=== PATIENT | male | born 1980 | race Caucasian/White ===

== ENCOUNTER 2021-07-04 20:52 | Emergency (ER) | payer OTHER ==
[2021-07-04] MEDS ORDERED: Lidocaine Viscous Sol 2% 15 ml UD Cup ONE (21:36)
[2021-07-04] MEDS ORDERED: Mag-Al 1200 mg/1200 mg/30 ML UDCUP ONE (21:36)
[2021-07-04 22:08] LABS: #Basophils 0.1 thou/uL (0.0-0.2); #Eosinphils 0.1 thou/uL (0.0-0.7); #Lymphocytes 2.6 thou/uL (1.20-3.40); #Monocytes 0.5 thou/uL (0.11-0.59); #Neutrophils 3.1 thou/uL (1.40-6.50); %Basophils 1.1 % (0.0-1.0); %Eosinophils 2.3 % (0.0-10.0); %Lymphocytes 40.7 % (21.0-51.0); %Monocytes 8.2 % (0.0-10.0); %Neutrophils 47.8 % (42.0-75.0); Hemoglobin 17.5 g/dL (14.0-18.0); Mean Corpuscular HGB CONC 33.2 g/dL (32.0-36.0); Mean Corpuscular Hemoglobin 30.5 pg (27.0-31.0); Mean Corpuscular Volume 91.6 fL (78.0-98.0); Mean Platelet Volume 6.8 fL (7.4-10.4); Platelet Count 281 thou/uL (130-400); RBC Distribution Width 13.2 % (11.5-14.5); Red Blood Cell (RBC) Count 5.75 mill/uL (4.70-6.10); White Blood Cell (WBC) Count 6.5 thou/uL (4.8-10.8)
[2021-07-04 22:17] LABS: Bacteria/HPF None Seen HPF (None Seen); Bilirubin Negative (Negative); Blood, Urine Negative (Negative); Calcium Oxalate Crystals 2+ HPF (None Seen); Clarity Clear (Clear); Glucose, Urine (Dipstick) Normal (Negative); Ketone, Urine Negative (Negative); Leukocyte Negative Leu/uL (Negative); Nitrite Negative (Negative); Protein, Urine (Dipstick) 50 mg/dL (Neg-Trace); RBC/HPF 0-3 HPF (0-3); Specific Gravity, Urine 1.031 (1.002-1.036); Squamous Epithelial 0-3 HPF (0-3); Urobilinogen Normal mg/dL (Less than 2); WBC/HPF 0-3 HPF (0-3); pH, Urine 5.5 (5.0-9.0)
[2021-07-04 23:01] LABS: ALT (SGPT) 80 U/L (8-55); AST (SGOT) 52 U/L (5-34); Albumin 4.6 g/dL (3.5-5.0); Alkaline Phosphatase 73 U/L (40-110); Anion Gap 15 mmol/L (10-20); BUN (Urea Nitrogen) 10 mg/dL (8.9-20.6); Bilirubin, Total 0.6 mg/dL (0.2-1.2); Calc. Creatinine Clearance 0 mL/min (70-130); Calcium 9.2 mg/dL (7.8-10.44); Carbon Dioxide 22 mmol/L (22-29); Chloride 104 mmol/L (98-107); Globulin 2.8 g/dL (2.4-3.5); Glucose 87 mg/dL (70-105); Lipase 17 U/L (8-78); Potassium 4.3 mmol/L (3.5-5.1); Protein, Total 7.4 g/dL (6.0-8.3); Sodium 137 mmol/L (136-145)
== END 2021-07-04 23:34 | disposition home or self-care (01) ==
LOC: ERS 20:52
DX: R10.13 Epigastric pain (principal); F17.210 Nicotine dependence, cigarettes, uncomplicated; R10.812 Left upper quadrant abdominal tenderness; Z79.899 Other long term (current) drug therapy
CPT/HCPCS: 36415; 80053; 81003; 81015; 83690; 85025; 99284

== ENCOUNTER 2023-06-23 13:50 | Inpatient (IN) | payer BC, OTHER, SELFPAY ==
[~2023-06-23 13:50] MED LIST: Iopamidol-370 76% 500 ML MDV (1 ML CHARGE) ONE
[2023-06-23] MEDS ORDERED: CEFAZOLIN 2 GM VIAL ONE (13:56)
[2023-06-23] MEDS ORDERED: Tranexamic Acid 1,000 MG/10 ML VIAL ONE ×2 (13:56→16:28)
[2023-06-23] MEDS ORDERED: Boostrix 0.5 ML (Tdap) VIAL (>/=7 yrs of age) ONE (13:57)
[2023-06-23 14:14] LABS: Hematocrit 42.1 % (42.0-52.0); Hemoglobin 12.8 g/dL (14.0-18.0); Manual Diff?? YES; Mean Corpuscular HGB CONC 30.4 g/dL (32.0-36.0); Mean Corpuscular Hemoglobin 29.3 pg (27.0-31.0); Mean Corpuscular Volume 96.3 fl (78.0-98.0); Mean Platelet Volume 10.1 fL (7.4-10.4); Platelet Count 226 10x3/uL (130-400); RBC Distribution Width 17.1 % (11.5-14.5); Red Blood Cell (RBC) Count 4.37 mill/uL (4.70-6.10); White Blood Cell (WBC) Count 8.4 10x3/uL (4.8-10.8)
[2023-06-23 14:21] LABS: Delete Auto Diff?? YES
[2023-06-23 14:28] LABS: INR-International Normal Ratio 1.8; Prothrombin Time 20.5 sec (12.0-14.7)
[2023-06-23] MEDS ORDERED: Ketamine In 0.9 % NaCl 50 MG/5 ML SYRINGE ONE (14:28)
[2023-06-23 14:29] LABS: PTT 46.7 sec (22.9-36.1)
[2023-06-23] MEDS ORDERED: PHENYLEPHRINE-NS 100 MCG/ML 10 ML SYRINGE ONE (14:31)
[2023-06-23] MEDS ORDERED: Albumin 5% 500 ML ONE ×2 (14:33→16:30)
[2023-06-23] MEDS ORDERED: EPINEPHrine 1 MG/10 ML Abboject SYRINGE ONE (14:37)
[2023-06-23] MEDS ORDERED: Vasopressin 20 UNITS/ML VIAL ONE (14:37)
[2023-06-23] MEDS ORDERED: Rocuronium Bromide 10 MG/ML (10ML VIAL) ONE ×2 (14:39→15:35)
[2023-06-23] MEDS ORDERED: ePHEDrine Sulfate 50 MG/10 ML VIAL ONE (14:39)
[2023-06-23 14:43] LABS: Anisocytosis SLIGHT = 6-15 cells HPF (0-5); Band 5 % (5-11); Burr Cells SLIGHT = 2-5 cells HPF (0-1); CellaVision Operator ID LAB.MJL; Eosinophils 3 % (0-10); Lymphocytes 50 % (21-51); Metamyelocyte 2 % (0-0); Monocytes 4 % (0-10); Neutrophil 35 % (42-75); Ovalocytes SLIGHT = 2-5 cells HPF (0-1); Platelet Adequacy Comment Platelets Normal; Poikilocytosis SLIGHT = 6-15 cells HPF (0-5); Polychromasia SLIGHT = 2-3 cells HPF (0-2); Total Cell Count 100
[2023-06-23] MEDS ORDERED: fentaNYL 50 mcg/mL 1 mL Vial ONE (14:43)
[2023-06-23] MEDS ORDERED: fentaNYL PF 100 MCG/2 ML SYRINGE ONE (14:47)
[2023-06-23] MEDS ORDERED: Midazolam HCl 2 mg/2 ml Vial ONE ×2 (14:48→15:35)
[2023-06-23] MEDS ORDERED: Electrolyte Replacement Protocol 1 EACH IVPB ONE (15:22)
[2023-06-23] MEDS ORDERED: Ondansetron PF 4 MG/2 ML Vial IVP PRN (15:22)
[2023-06-23] MEDS ORDERED: Insulin Regular 300 UNITS/3 ML VIAL ONE (15:24)
[2023-06-23] MEDS ORDERED: Dextrose 50% Abboject 50 ML SYRINGE ONE ×2 (15:26→17:34)
[2023-06-23] MEDS ORDERED: DISCONTINUE PREVIOUS NARCOTIC PAIN MEDICATIONS AND BENZODIAZEPINES FS SCH (15:30)
[2023-06-23] MEDS ORDERED: Ventilator Sedation Protocol 1 EACH FS SCH (15:30)
[2023-06-23] MEDS ORDERED: Propofol BOLUS 1,000 MG/100 ML VIAL IV PRN (15:30)
[2023-06-23] MEDS ORDERED: Fentanyl BOLUS 250 ML IVPB PRN (15:30)
[2023-06-23] MEDS ORDERED: Calcium Chloride 1 GM/10 ML Abboject SYRINGE ONE ×3 (15:41→17:00)
[2023-06-23 15:50] LABS: ALT (SGPT) 512 U/L (8-55); AST (SGOT) 473 U/L (5-34); Albumin 2.6 g/dL (3.5-5.0); Alkaline Phosphatase 53 U/L (40-110); BUN (Urea Nitrogen) 10 mg/dL (8.9-20.6); Bilirubin, Total 0.2 mg/dL (0.2-1.2); Calc. Creatinine Clearance 0 mL/min (70-130); Calcium 7.8 mg/dL (7.8-10.44); Chloride 110 mmol/L (98-107); Estimated GFR 64; Globulin 1.6 g/dL (2.4-3.5); Glucose 319 mg/dL (70-105); Potassium 4.3 mmol/L (3.5-5.1); Protein, Total 4.2 g/dL (6.0-8.3); Sodium 137 mmol/L (136-145)
[2023-06-23] MEDS ORDERED: Protamine Sulfate 50 MG/5 ML VIAL ONE (15:50)
[2023-06-23] MEDS ORDERED: Heparin 5,000 UNITS/ML VIAL ONE (15:50)
[2023-06-23 16:00] LABS: Carbon Dioxide Less than 8 mmol/L (22-29)
[2023-06-23] MEDS ORDERED: Electrolyte Replacement Protocol FS PRN (16:00)
[2023-06-23 16:36] LABS: Critical Call Chem-Lactate E343.105A@1635163
[2023-06-23 16:53] LABS: INR-International Normal Ratio 1.8; Prothrombin Time 20.7 sec (12.0-14.7)
[2023-06-23 16:54] LABS: PTT 41.2 sec (22.9-36.1)
[2023-06-23 18:13] LABS: Actual Bicarbonate (HCO3a) 19.4 mEq/L (22-28); Base Excess (BEa) -6.7 mEq/L (-2.0 to +3.0); CO2 Tension 41.1 mmHg (35.0-45.0); Carboxyhemoglobin (COHb) 0.7 gm% (0.0-3.0); Hematocrit-ABG 24 % (42.0-52.0); Hemoglobin (Hb) 8.1 g/dL (14.0-18.0); O2 Tension (PaO2), arterial 499.1 mmHg (80.0-100.0); Potassium - ABG Lab 4.34 mmol/L (3.70-5.30); pH, Arterial 7.291 (7.35-7.45)
[2023-06-23] MEDS: Morphine 2 MG/ML VIAL SLOW IVP PRN (18:15)
[2023-06-23] MEDS: Lactated Ringer's 1,000 ML IV SCH (18:16)
[2023-06-23 18:22] LABS: ALV-art Gradient 162.525 mmHg (0-20); Puncture Site ALINE
[2023-06-23 18:25] LABS: Mean Corpuscular Hemoglobin 30.4 pg (27.0-31.0); Mean Platelet Volume 9.7 fL (7.4-10.4); Platelet Count 178 10x3/uL (130-400); RBC Distribution Width 14.8 % (11.5-14.5)
[2023-06-23 18:27] LABS: Hematocrit 22.6 % (42.0-52.0); Hemoglobin 7.9 g/dL (14.0-18.0); Mean Corpuscular Volume 86.9 fl (78.0-98.0)
[2023-06-23] MEDS: Ipratropium/Albuterol 3 ML NEB NEB SCH (18:31)
[2023-06-23] MEDS: Fentanyl CADD 100 ML IV SCH (18:35)
[2023-06-23 18:48] LABS: Anion Gap 13 mmol/L (10-20); BUN (Urea Nitrogen) 11 mg/dL (8.9-20.6); Calc. Creatinine Clearance 0 mL/min (70-130); Calcium 8.5 mg/dL (7.8-10.44); Carbon Dioxide 17 mmol/L (22-29); Chloride 115 mmol/L (98-107); Estimated GFR 66; Glucose 97 mg/dL (70-105); Potassium 4.5 mmol/L (3.5-5.1); Sodium 140 mmol/L (136-145)
[2023-06-23 18:49] LABS: Lactic Acid 2.7 mmol/L (0.5-2.2)
[2023-06-23] MEDS: Lorazepam 2 MG/ML VIAL SLOW IVP PRN (19:36)
[2023-06-23 20:37] LABS: Amphetamine Detected (NotDetected); Barbiturates Screen Detected (NotDetected); Benzodiazepine Screen Not Detected (NotDetected); Cocaine Metabolite Screen Not Detected (NotDetected); Methadone Not Detected (NotDetected); Methamphetamine Not Detected (NotDetected); Opiate Screen Detected (NotDetected); Oxycodone Screen Not Detected (NotDetected); Phencyclidine (PCP) Not Detected (NotDetected); THC/Cannabinoid Screen Not Detected (NotDetected); Tricyclic Screen Not Detected (NotDetected)
[2023-06-23] MEDS: CEFAZOLIN 2 GM in Sodium Chloride 0.9% 100 ML IVPB SCH (21:17)
[2023-06-23] MEDS: Famotidine/PF 20 mg/2ml Vial SLOW IVP SCH (21:17)
[2023-06-23 22:56] LABS: Hemoglobin 9.5 g/dL (14.0-18.0); Mean Corpuscular HGB CONC 36.5 g/dL (32.0-36.0); Mean Corpuscular Hemoglobin 32.2 pg (27.0-31.0); Mean Corpuscular Volume 88.1 fl (78.0-98.0); Mean Platelet Volume 9.9 fL (7.4-10.4); Platelet Count 189 10x3/uL (130-400); RBC Distribution Width 14.7 % (11.5-14.5); Red Blood Cell (RBC) Count 2.95 mill/uL (4.70-6.10); White Blood Cell (WBC) Count 22.2 10x3/uL (4.8-10.8)
[2023-06-24] MEDS: Acetaminophen 325 MG TAB PO PRN (00:30)
[2023-06-24] MEDS: Sodium Chloride 0.9% 500 ML IV SCH (02:26)
[2023-06-24] MEDS: Propofol 1,000 MG/100 ML VIAL IV PRN (03:19)
[2023-06-24 03:20] LABS: Delete Auto Diff?? YES; Hematocrit 21.4 % (42.0-52.0); Hemoglobin 7.7 g/dL (14.0-18.0); Manual Diff?? YES; Mean Corpuscular Hemoglobin 31.4 pg (27.0-31.0); Mean Corpuscular Volume 87.3 fl (78.0-98.0); Mean Platelet Volume 9.8 fL (7.4-10.4); Platelet Count 188 10x3/uL (130-400); RBC Distribution Width 15.2 % (11.5-14.5); Red Blood Cell (RBC) Count 2.45 mill/uL (4.70-6.10); White Blood Cell (WBC) Count 19.6 10x3/uL (4.8-10.8)
[2023-06-24 03:33] LABS: INR-International Normal Ratio 1.6; Prothrombin Time 19.3 sec (12.0-14.7)
[2023-06-24 03:34] LABS: PTT 31.1 sec (22.9-36.1)
[2023-06-24 03:45] LABS: Anisocytosis SLIGHT = 6-15 cells HPF (0-5); Band 7 % (5-11); CellaVision Operator ID lab.sh2; Lymphocytes 5 % (21-51); Monocytes 3 % (0-10); Neutrophil 85 % (42-75); Platelet Adequacy Comment Platelets Normal; Polychromasia SLIGHT = 2-3 cells HPF (0-2); Smudge Cells 9.8 %; Total Cell Count 102
[2023-06-24 04:00] LABS: ALT (SGPT) 556 U/L (8-55); AST (SGOT) 742 U/L (5-34); Albumin 3.2 g/dL (3.5-5.0); Alkaline Phosphatase 42 U/L (40-110); Anion Gap 14 mmol/L (10-20); BUN (Urea Nitrogen) 22 mg/dL (8.9-20.6); Bilirubin, Total 0.5 mg/dL (0.2-1.2); Calc. Creatinine Clearance 43 mL/min (70-130); Calcium 6.9 mg/dL (7.8-10.44); Carbon Dioxide 17 mmol/L (22-29); Chloride 116 mmol/L (98-107); Estimated GFR 35; Globulin 1.3 g/dL (2.4-3.5); Glucose 118 mg/dL (70-105); Potassium 6.7 mmol/L (3.5-5.1); Protein, Total 4.5 g/dL (6.0-8.3); Sodium 140 mmol/L (136-145)
[2023-06-24] MEDS ORDERED: Lactated Ringer's 1,000 ML IV SCH (04:08)
[2023-06-24] MEDS: Insulin Regular 300 UNITS/3 ML VIAL IVP SCH ×2 (04:19→06:17)
[2023-06-24] MEDS: Dextrose 50% Abboject 50 ML SYRINGE SLOW IVP PRN (04:19)
[2023-06-24] MEDS: Sodium Bicarb 50 mEq/50 ML VIAL IVP SCH (04:20)
[2023-06-24] MEDS: Calcium Gluc 4.6 MEQ/10 ML (100 MG/ML) SLOW IVP SCH (04:21)
[2023-06-24] MEDS: Sodium Chloride 0.9% 1,000 ML IV SCH (04:33)
[2023-06-24 06:00] LABS: Anion Gap 14 mmol/L (10-20); BUN (Urea Nitrogen) 24 mg/dL (8.9-20.6); Calc. Creatinine Clearance 42 mL/min (70-130); Carbon Dioxide 16 mmol/L (22-29); Chloride 115 mmol/L (98-107); Estimated GFR 33; Glucose 207 mg/dL (70-105); Sodium 139 mmol/L (136-145)
[2023-06-24 06:02] LABS: Calcium 6.9 mg/dL (7.8-10.44); Critical Call Chemistry ICU.TMC@0602; Potassium 6.1 mmol/L (3.5-5.1)
[2023-06-24] MEDS ORDERED: Dextrose 50% Abboject 50 ML SYRINGE SLOW IVP PRN (06:04)
[2023-06-24] MEDS ORDERED: Glucagon 1 MG/ML KIT IM PRN (06:18)
[2023-06-24] MEDS: LOKELMA 10 GM PACKET PO SCH (06:18)
[2023-06-24] MEDS ORDERED: Dextrose 5% in Water 1,000 ML IV PRN (06:18)
[2023-06-24] MEDS: Sodium Bicarbonate 150 MEQ in Dextrose 5% in Water 1,000 ML IV SCH ×2 (06:31→10:06)
[2023-06-24 07:43] LABS: Actual Bicarbonate (HCO3a) 18.4 mEq/L (22-28); Base Excess (BEa) -6.4 mEq/L (-2.0 to +3.0); CO2 Tension 33.8 mmHg (35.0-45.0); Carboxyhemoglobin (COHb) 0.3 gm% (0.0-3.0); Hematocrit-ABG 25 % (42.0-52.0); Hemoglobin (Hb) 8.4 g/dL (14.0-18.0); O2 Tension (PaO2), arterial 160.4 mmHg (80.0-100.0); Potassium - ABG Lab 5.16 mmol/L (3.70-5.30); pH, Arterial 7.354 (7.35-7.45)
[2023-06-24 07:45] LABS: Puncture Site Arterial Line
[2023-06-24 08:31] LABS: Hematocrit 22.5 % (42.0-52.0); Hemoglobin 8.1 g/dL (14.0-18.0); Mean Corpuscular Hemoglobin 31.2 pg (27.0-31.0); Mean Corpuscular Volume 86.5 fl (78.0-98.0); Mean Platelet Volume 10.3 fL (7.4-10.4); Platelet Count 162 10x3/uL (130-400); RBC Distribution Width 15.2 % (11.5-14.5); White Blood Cell (WBC) Count 14.1 10x3/uL (4.8-10.8)
[2023-06-24 08:58] LABS: Bilirubin Negative (Negative); Blood, Urine 3+ (Negative); Clarity Turbid (Clear); Glucose, Urine (Dipstick) 200 mg/dL (Negative); Ketone, Urine Trace mg/dL (Negative); Leukocyte Negative Leu/uL (Negative); Nitrite Negative (Negative); Protein, Urine (Dipstick) 100 mg/dL (Neg-Trace); Specific Gravity, Urine 1.032 (1.002-1.036); Squamous Epithelial 0-3 HPF (0-3); Urobilinogen Normal mg/dL (Less than 2); pH, Urine 5.5 (5.0-9.0)
[2023-06-24 09:08] LABS: Bacteria/HPF 2+ HPF (None Seen)
[2023-06-24 09:16] LABS: Creatinine, Urine 133.29 mg/dL (63-166); Sodium, Urine Less than 20 mmol/L (Not Available)
[2023-06-24] MEDS: HumaLOG 300 UNITS/3 ML VIAL SC PRN (10:08)
[2023-06-24 12:36] LABS: Anion Gap 13 mmol/L (10-20); BUN (Urea Nitrogen) 30 mg/dL (8.9-20.6); Calc. Creatinine Clearance 35 mL/min (70-130); Carbon Dioxide 25 mmol/L (22-29); Chloride 108 mmol/L (98-107); Estimated GFR 26; Glucose 178 mg/dL (70-105); Potassium 4.1 mmol/L (3.5-5.1); Sodium 142 mmol/L (136-145)
[2023-06-24 12:40] LABS: Calcium 6.1 mg/dL (7.8-10.44); Critical Call Chemistry NUR.AG15@1240
[2023-06-24 13:02] LABS: CK (CPK) 37962 U/L (30-200)
[2023-06-24] MEDS: Calcium Chloride 13.6 MEQ in Sodium Chloride 0.9% 100 ML IVPB SCH ×3 (13:14→19:32)
[2023-06-24] MEDS: Lactated Ringer's 1,000 ML IV SCH (15:53)
[2023-06-24 17:36] LABS: Hematocrit 18.2 % (42.0-52.0); Hemoglobin 6.6 g/dL (14.0-18.0); Mean Corpuscular HGB CONC 36.3 g/dL (32.0-36.0); Mean Corpuscular Volume 85.4 fl (78.0-98.0); Mean Platelet Volume 10.2 fL (7.4-10.4); Platelet Count 128 10x3/uL (130-400); RBC Distribution Width 15.1 % (11.5-14.5); Red Blood Cell (RBC) Count 2.13 mill/uL (4.70-6.10); White Blood Cell (WBC) Count 9.5 10x3/uL (4.8-10.8)
[2023-06-24] MEDS: Sodium Bicarbonate 75 MEQ in Sodium Chloride 0.45% 1,000 ML IV SCH (17:53)
[2023-06-24 18:09] LABS: Anion Gap 12 mmol/L (10-20); BUN (Urea Nitrogen) 33 mg/dL (8.9-20.6); Calc. Creatinine Clearance 29 mL/min (70-130); Carbon Dioxide 29 mmol/L (22-29); Chloride 104 mmol/L (98-107); Estimated GFR 21; Glucose 74 mg/dL (70-105); Potassium 3.8 mmol/L (3.5-5.1); Sodium 141 mmol/L (136-145)
[2023-06-24 18:14] LABS: Calcium 6.9 mg/dL (7.8-10.44); Critical Call Chemistry NUR.AG15@1814
[2023-06-24] MEDS ORDERED: hydrALAZINE 20 MG/ML VIAL SLOW IVP PRN ×2 (19:29→22:56)
[2023-06-24] MEDS: Labetalol HCl 100 MG/20 ML VIAL SLOW IVP PRN (20:02)
[2023-06-24] MEDS: Senokot S 8.6-50 MG TAB PO SCH (21:22)
[2023-06-24 21:38] LABS: Hemoglobin 7.7 g/dL (14.0-18.0); Mean Corpuscular Hemoglobin 29.7 pg (27.0-31.0); Mean Corpuscular Volume 84.9 fl (78.0-98.0); Mean Platelet Volume 10.4 fL (7.4-10.4); Platelet Count 103 10x3/uL (130-400); RBC Distribution Width 15.7 % (11.5-14.5); Red Blood Cell (RBC) Count 2.59 mill/uL (4.70-6.10); White Blood Cell (WBC) Count 8.9 10x3/uL (4.8-10.8)
[2023-06-24] MEDS: Sodium Chloride 0.45% 1,000 ML IV SCH (23:32)
[2023-06-25] MEDS: Labetalol HCl 100 MG/20 ML VIAL SLOW IVP PRN (00:35)
[2023-06-25 04:28] LABS: Hematocrit 20.7 % (42.0-52.0); Hemoglobin 7.2 g/dL (14.0-18.0); Manual Diff?? YES; Mean Corpuscular HGB CONC 34.8 g/dL (32.0-36.0); Mean Corpuscular Hemoglobin 30.1 pg (27.0-31.0); Mean Corpuscular Volume 86.6 fl (78.0-98.0); Mean Platelet Volume 10.9 fL (7.4-10.4); Platelet Count 105 10x3/uL (130-400); RBC Distribution Width 15.8 % (11.5-14.5); Red Blood Cell (RBC) Count 2.39 mill/uL (4.70-6.10); White Blood Cell (WBC) Count 9.5 10x3/uL (4.8-10.8)
[2023-06-25 04:30] LABS: Delete Auto Diff?? YES
[2023-06-25 04:42] LABS: INR-International Normal Ratio 1.8; Prothrombin Time 21.2 sec (12.0-14.7)
[2023-06-25 04:43] LABS: PTT 34.5 sec (22.9-36.1)
[2023-06-25 05:21] LABS: ALT (SGPT) 2066 U/L (8-55); Albumin 2.5 g/dL (3.5-5.0); Alkaline Phosphatase 43 U/L (40-110); Anion Gap 17 mmol/L (10-20); BUN (Urea Nitrogen) 45 mg/dL (8.9-20.6); Bilirubin, Total 0.5 mg/dL (0.2-1.2); Calc. Creatinine Clearance 22 mL/min (70-130); Carbon Dioxide 25 mmol/L (22-29); Chloride 103 mmol/L (98-107); Estimated GFR 15; Globulin 1.6 g/dL (2.4-3.5); Glucose 89 mg/dL (70-105); Potassium 5.3 mmol/L (3.5-5.1); Protein, Total 4.1 g/dL (6.0-8.3); Sodium 140 mmol/L (136-145)
[2023-06-25 05:33] LABS: Calcium 6.8 mg/dL (7.8-10.44); Critical Call Chemistry ICU.TMC @0532
[2023-06-25 05:42] LABS: Band 23 % (5-11); CellaVision Operator ID LAB.CLH1; Eosinophils 1 % (0-10); Hypochromia SLIGHT = 6-15 cells HPF (0-5); Large Platelets 5.1 % (0-5); Lymphocytes 14 % (21-51); Microcytosis SLIGHT = 6-15 cells HPF (0-5); Monocytes 3 % (0-10); Neutrophil 58 % (42-75); Nucleated RBC (Manual Ct) 1 % (0); Platelet Adequacy Comment Platelets Decreased; Polychromasia SLIGHT = 2-3 cells HPF (0-2); Total Cell Count 99
[2023-06-25 05:50] LABS: AST (SGOT) Greater than 3500 U/L (5-34)
[2023-06-25] MEDS: Albumin 25% 25 GM (100 mL) BOT IVPB SCH (06:00)
[2023-06-25 06:20] LABS: CK (CPK) Greater than 40000 U/L (30-200)
[2023-06-25 07:53] LABS: Actual Bicarbonate (HCO3a) 25.2 mEq/L (22-28); Base Excess (BEa) 1.7 mEq/L (-2.0 to +3.0); CO2 Tension 34.1 mmHg (35.0-45.0); Calcium, Ionized (arterial) 0.86 mmol/L (1.12-1.30); Carboxyhemoglobin (COHb) 0.4 gm% (0.0-3.0); Hematocrit-ABG 21 % (42.0-52.0); Potassium - ABG Lab 4.81 mmol/L (3.70-5.30); pH, Arterial 7.486 (7.35-7.45)
[2023-06-25 07:55] LABS: Puncture Site Arterial Line
[2023-06-25 07:56] LABS: ALV-art Gradient 74.575 mmHg (0-20)
[2023-06-25 08:05] LABS: Hemoglobin 6.7 g/dL (14.0-18.0); Mean Corpuscular HGB CONC 35.3 g/dL (32.0-36.0); Mean Corpuscular Hemoglobin 30.5 pg (27.0-31.0); Mean Corpuscular Volume 86.4 fl (78.0-98.0); Mean Platelet Volume 10.8 fL (7.4-10.4); Platelet Count 93 10x3/uL (130-400); RBC Distribution Width 15.9 % (11.5-14.5); White Blood Cell (WBC) Count 8.5 10x3/uL (4.8-10.8)
[2023-06-25] MEDS: Sodium Bicarbonate 75 MEQ in Sodium Chloride 0.45% 1,000 ML IV SCH (08:46)
[2023-06-25] MEDS: Polyethylene Glycol 3350 17 GM Packet PO SCH (09:49)
[2023-06-25] MEDS: Pantoprazole 40 MG VIAL IVP SCH (09:49)
[2023-06-25 14:07] LABS: Hematocrit 20.5 % (42.0-52.0); Hemoglobin 7.4 g/dL (14.0-18.0)
[2023-06-25 14:09] LABS: Platelet Count 86 10x3/uL (130-400)
[2023-06-25 14:23] LABS: Fibrinogen 315 mg/dL (253-463); INR-International Normal Ratio 1.8; PTT 33.2 sec (22.9-36.1); Prothrombin Time 20.7 sec (12.0-14.7)
[2023-06-25 14:34] LABS: D-Dimer Test 4.18 *mcg/mL (0.27-0.43)
[2023-06-25 14:43] LABS: Anion Gap 14 mmol/L (10-20); BUN (Urea Nitrogen) 54 mg/dL (8.9-20.6); Calc. Creatinine Clearance 18 mL/min (70-130); Carbon Dioxide 26 mmol/L (22-29); Chloride 103 mmol/L (98-107); Estimated GFR 12; Glucose 100 mg/dL (70-105); Potassium 4.9 mmol/L (3.5-5.1); Sodium 138 mmol/L (136-145)
[2023-06-25 14:49] LABS: Critical Call Chemistry ICU.VW@1448
[2023-06-25] MEDS: Calcium Chloride 27.2 MEQ in Sodium Chloride 0.9% 250 ML 250 ML IVPB SCH (17:34)
[2023-06-25] MEDS: Calcium Chloride 13.6 MEQ in Sodium Chloride 0.9% 100 ML IVPB SCH (18:36)
[2023-06-25] MEDS ORDERED: niCARdipine 25 MG in Sodium Chloride 0.9% 250 ML 250 ML IVPB SCH (20:15)
[2023-06-25 20:27] LABS: Hematocrit 20.4 % (42.0-52.0); Hemoglobin 7.3 g/dL (14.0-18.0); Mean Corpuscular HGB CONC 35.8 g/dL (32.0-36.0); Mean Platelet Volume 10.6 fL (7.4-10.4); Platelet Count 67 10x3/uL (130-400); RBC Distribution Width 15.8 % (11.5-14.5); Red Blood Cell (RBC) Count 2.43 mill/uL (4.70-6.10); White Blood Cell (WBC) Count 7.4 10x3/uL (4.8-10.8)
[2023-06-25] MEDS: niCARdipine 25 MG in Sodium Chloride 0.9% 250 ML 250 ML IVPB SCH (20:39)
[2023-06-25] MEDS: Tranexamic Acid 1,000 MG/10 ML VIAL IVP SCH (21:35)
[2023-06-25] MEDS: Labetalol HCl 100 MG/20 ML VIAL SLOW IVP SCH (21:45)
[2023-06-25 22:58] LABS: Hep B Core Total Ab Non-Reactive (NonReactive); Hep B Core Total Index 0.06 S/CO (0-0.79); Hep B Surf Ag Non-Reactive S/CO (NonReactive); Hep C IgG Ab Non-Reactive S/CO (NonReactive); Hep C Index 0.03 S/CO (0-0.79)
[2023-06-25 23:01] LABS: Hep B Surf AB Reactive (NonReactive)
[2023-06-25 23:25] LABS: Glucose 91 mg/dL (70-105)
[2023-06-26 02:06] LABS: #Eosinphils 0.2 thou/uL (0.0-0.7); #Monocytes 0.6 thou/uL (0.11-0.59); #Neutrophils 6.9 thou/uL (1.40-6.50); %Basophils 0.2 % (0.0-1.0); %Eosinophils 2.3 % (0.0-10.0); %Monocytes 6.3 % (0.0-10.0); Hematocrit 24.5 % (42.0-52.0); Hemoglobin 8.5 g/dL (14.0-18.0); Mean Corpuscular HGB CONC 34.7 g/dL (32.0-36.0); Mean Corpuscular Hemoglobin 29.4 pg (27.0-31.0); Mean Corpuscular Volume 84.8 fl (78.0-98.0); Mean Platelet Volume 10.9 fL (7.4-10.4); Platelet Count 68 10x3/uL (130-400); RBC Distribution Width 15.8 % (11.5-14.5); Red Blood Cell (RBC) Count 2.89 mill/uL (4.70-6.10); White Blood Cell (WBC) Count 8.8 10x3/uL (4.8-10.8)
[2023-06-26 02:33] LABS: ALT (SGPT) 614 U/L (8-55); AST (SGOT) 3326 U/L (5-34); Albumin 3.6 g/dL (3.5-5.0); Alkaline Phosphatase 39 U/L (40-110); Anion Gap 18 mmol/L (10-20); BUN (Urea Nitrogen) 60 mg/dL (8.9-20.6); Bilirubin, Total 0.8 mg/dL (0.2-1.2); Calc. Creatinine Clearance 8 mL/min (70-130); Calcium 7.2 mg/dL (7.8-10.44); Carbon Dioxide 25 mmol/L (22-29); Chloride 99 mmol/L (98-107); Estimated GFR 10; Globulin 1.5 g/dL (2.4-3.5); Glucose 101 mg/dL (70-105); Potassium 4.4 mmol/L (3.5-5.1); Protein, Total 5.1 g/dL (6.0-8.3); Sodium 138 mmol/L (136-145)
[2023-06-26 03:48] LABS: CK (CPK) Greater than 40000 U/L (30-200)
[2023-06-26 06:35] LABS: Actual Bicarbonate (HCO3a) 22.3 mEq/L (22-28); Base Excess (BEa) -1.4 mEq/L (-2.0 to +3.0); CO2 Tension 32.9 mmHg (35.0-45.0); Calcium, Ionized (arterial) 0.83 mmol/L (1.12-1.30); Carboxyhemoglobin (COHb) 0.6 gm% (0.0-3.0); Hematocrit-ABG 24 % (42.0-52.0); Hemoglobin (Hb) 8.2 g/dL (14.0-18.0); pH, Arterial 7.448 (7.35-7.45)
[2023-06-26 06:37] LABS: ALV-art Gradient 289.025 mmHg (0-20); Puncture Site A-Line
[2023-06-26] MEDS ORDERED: Glycopyrrolate 0.4 MG/ 2 ML VIAL SLOW IVP PRN (10:00)
[2023-06-26] MEDS: Acetylcysteine 20% 200 MG/ML 30 ML VIAL INH SCH ×2 (10:28→19:01)
[2023-06-26] MEDS: NIFEdipine XL 30 MG ER.TAB PO SCH (10:44)
[2023-06-26] MEDS: FLU VACC QS2023-24(6MOS UP)/PF 60 MCG/0.5 ML SYRINGE IM ONE (10:52)
[2023-06-26] MEDS: Scopolamine 1 mg/72 hour Patch TOP SCH (10:55)
[2023-06-26] MEDS: Furosemide 40 MG (4 mL) VIAL SLOW IVP SCH ×2 (10:56→13:22)
[2023-06-26] MEDS: Lactulose 20 GM (30 mL) UDCUP PO SCH ×2 (10:56→22:52)
[2023-06-26] MEDS: GLYCOPYRROLATE/PF 0.2 MG/ML VIAL SLOW IVP PRN (10:58)
[2023-06-26] MEDS: Glycopyrrolate 0.4 MG/ 2 ML VIAL SLOW IVP SCH ×2 (10:59→22:56)
[2023-06-26] MEDS: Lidocaine 1% (PF) 30 ML VIAL ONE (10:59)
[2023-06-26] MEDS: Sodium Bicarbonate 75 MEQ in Sodium Chloride 0.45% 1,000 ML IV SCH (11:00)
[2023-06-26 11:48] LABS: Glucose 110 mg/dL (70-105)
[2023-06-26] MEDS ORDERED: fentaNYL PF 100 MCG/2 ML SYRINGE ONE ×2 (12:26→14:17)
[2023-06-26] MEDS ORDERED: PROPOFOL 20 ML ONE (12:26)
[2023-06-26] MEDS ORDERED: Rocuronium Bromide 10 MG/ML (10ML VIAL) ONE ×2 (12:26→14:55)
[2023-06-26] MEDS ORDERED: Midazolam HCl 2 mg/2 ml Vial ONE (12:26)
[2023-06-26] MEDS: CEFAZOLIN 1 GM in Sodium Chloride 0.9% 100 ML IVPB SCH (13:22)
[2023-06-26] MEDS ORDERED: Calcium Chloride 1 GM/10 ML Abboject SYRINGE ONE (14:32)
[2023-06-26 16:46] LABS: Mean Corpuscular HGB CONC 34.9 g/dL (32.0-36.0); Mean Corpuscular Hemoglobin 32.9 pg (27.0-31.0); Mean Platelet Volume 11.2 fL (7.4-10.4); Platelet Count 107 10x3/uL (130-400); RBC Distribution Width 18.2 % (11.5-14.5); Red Blood Cell (RBC) Count 1.61 mill/uL (4.70-6.10); White Blood Cell (WBC) Count 8.8 10x3/uL (4.8-10.8)
[2023-06-26 17:04] LABS: Glucose 107 mg/dL (70-105); Hematocrit 15.2 % (42.0-52.0); Hemoglobin 5.3 g/dL (14.0-18.0); Mean Corpuscular Volume 94.4 fl (78.0-98.0)
[2023-06-26 17:07] LABS: Critical Call w/ Read Back ICU.VW@1707
[2023-06-26 17:14] LABS: Anion Gap 16 mmol/L (10-20); BUN (Urea Nitrogen) 65 mg/dL (8.9-20.6); Calc. Creatinine Clearance 16 mL/min (70-130); Calcium 7.3 mg/dL (7.8-10.44); Carbon Dioxide 25 mmol/L (22-29); Chloride 101 mmol/L (98-107); Estimated GFR 9; Glucose 106 mg/dL (70-105); Potassium 4.7 mmol/L (3.5-5.1); Sodium 137 mmol/L (136-145)
[2023-06-26 17:50] LABS: Hemoglobin 5.7 g/dL (14.0-18.0)
[2023-06-26] MEDS: Calcium Chloride 13.6 MEQ in Sodium Chloride 0.9% 100 ML IVPB SCH (19:51)
[2023-06-26 23:00] LABS: Glucose 101 mg/dL (70-105)
[2023-06-27 05:04] LABS: #Eosinphils 0.3 thou/uL (0.0-0.7); #Neutrophils 6.6 thou/uL (1.40-6.50); %Basophils 0.3 % (0.0-1.0); %Eosinophils 2.8 % (0.0-10.0); %Lymphocytes 12.6 % (21.0-51.0); %Monocytes 11.1 % (0.0-10.0); %Neutrophils 71.3 % (42.0-75.0); Hemoglobin 6.2 g/dL (14.0-18.0); Mean Corpuscular HGB CONC 34.4 g/dL (32.0-36.0); Mean Corpuscular Hemoglobin 31.2 pg (27.0-31.0); Mean Platelet Volume 10.9 fL (7.4-10.4); Platelet Count 131 10x3/uL (130-400); RBC Distribution Width 15.5 % (11.5-14.5); Red Blood Cell (RBC) Count 1.99 mill/uL (4.70-6.10); White Blood Cell (WBC) Count 9.3 10x3/uL (4.8-10.8)
[2023-06-27 05:16] LABS: Mean Corpuscular Volume 90.5 fl (78.0-98.0)
[2023-06-27 05:20] LABS: INR-International Normal Ratio 1.2; Prothrombin Time 15.4 sec (12.0-14.7)
[2023-06-27 05:21] LABS: PTT 28.8 sec (22.9-36.1)
[2023-06-27 05:31] LABS: ALT (SGPT) 47 U/L (8-55); AST (SGOT) 919 U/L (5-34); Albumin 2.8 g/dL (3.5-5.0); Alkaline Phosphatase 46 U/L (40-110); Anion Gap 14 mmol/L (10-20); BUN (Urea Nitrogen) 72 mg/dL (8.9-20.6); Bilirubin, Total 1.8 mg/dL (0.2-1.2); Calc. Creatinine Clearance 16 mL/min (70-130); Carbon Dioxide 27 mmol/L (22-29); Chloride 103 mmol/L (98-107); Estimated GFR 9; Globulin 1.7 g/dL (2.4-3.5); Glucose 92 mg/dL (70-105); Potassium 3.9 mmol/L (3.5-5.1); Protein, Total 4.5 g/dL (6.0-8.3); Sodium 140 mmol/L (136-145)
[2023-06-27 05:35] LABS: Calcium 6.5 mg/dL (7.8-10.44)
[2023-06-27] MEDS: Calcium Chloride 13.6 MEQ in Sodium Chloride 0.9% 100 ML IVPB SCH (06:45)
[2023-06-27 07:53] LABS: Actual Bicarbonate (HCO3a) 24.8 mEq/L (22-28); Base Excess (BEa) 0.6 mEq/L (-2.0 to +3.0); CO2 Tension 37.6 mmHg (35.0-45.0); Carboxyhemoglobin (COHb) 0.6 gm% (0.0-3.0); Hematocrit-ABG 25 % (42.0-52.0); Hemoglobin (Hb) 8.5 g/dL (14.0-18.0); O2 Tension (PaO2), arterial 73.8 mmHg (80.0-100.0); Potassium - ABG Lab 3.86 mmol/L (3.70-5.30); pH, Arterial 7.437 (7.35-7.45)
[2023-06-27 08:14] LABS: Puncture Site Arterial Line
[2023-06-27] MEDS: Albumin 25% 25 GM (100 mL) BOT IVPB SCH ×2 (10:37→12:05)
[2023-06-27] MEDS: GLYCOPYRROLATE/PF 0.2 MG/ML VIAL SLOW IVP SCH ×2 (10:38→19:48)
[2023-06-27 12:46] LABS: Hematocrit 25.9 % (42.0-52.0); Hemoglobin 8.8 g/dL (14.0-18.0)
[2023-06-27 13:02] LABS: Glucose 97 mg/dL (70-105)
[2023-06-27] MEDS: Midazolam HCl 2 mg/2 ml Vial SLOW IVP PRN (13:42)
[2023-06-27] MEDS: Piperacillin/Tazobactam 3.375 GM in Sodium Chloride 0.9% 100 ML IVPB SCH ×2 (17:17→19:49)
[2023-06-27 18:19] LABS: Hematocrit 27.5 % (42.0-52.0); Hemoglobin 9.5 g/dL (14.0-18.0); Mean Corpuscular HGB CONC 34.5 g/dL (32.0-36.0); Mean Corpuscular Hemoglobin 30.4 pg (27.0-31.0); Mean Corpuscular Volume 87.9 fl (78.0-98.0); Mean Platelet Volume 10.9 fL (7.4-10.4); Platelet Count 136 10x3/uL (130-400); RBC Distribution Width 18.4 % (11.5-14.5); Red Blood Cell (RBC) Count 3.13 mill/uL (4.70-6.10); White Blood Cell (WBC) Count 11.5 10x3/uL (4.8-10.8)
[2023-06-27 18:42] LABS: Anion Gap 15 mmol/L (10-20); BUN (Urea Nitrogen) 58 mg/dL (8.9-20.6); Calc. Creatinine Clearance 18 mL/min (70-130); Calcium 8.4 mg/dL (7.8-10.44); Carbon Dioxide 29 mmol/L (22-29); Chloride 100 mmol/L (98-107); Estimated GFR 11; Glucose 104 mg/dL (70-105); Potassium 4.4 mmol/L (3.5-5.1); Sodium 140 mmol/L (136-145)
[2023-06-27] MEDS: Sodium Chloride 0.9% 0 ML ONE (19:46)
[2023-06-27] MEDS: niCARdipine 25 MG/10 ML SDV ONE (19:46)
[2023-06-27] MEDS: Amlodipine 10 MG TAB PO SCH (19:47)
[2023-06-27] MEDS: Metoprolol Tartrate 25 MG TAB PO SCH (19:47)
[2023-06-27] MEDS: Bisacodyl 5 MG TAB PO SCH (19:49)
[2023-06-27] MEDS: Morphine 4 MG/ML VIAL SLOW IVP PRN (21:22)
[2023-06-27] MEDS ORDERED: Dexmedetomidine In 0.9 % NaCl 100 ML IVPB SCH (21:30)
[2023-06-27 23:09] LABS: Glucose 115 mg/dL (70-105)
[2023-06-28 04:14] LABS: Hematocrit 23.8 % (42.0-52.0); Hemoglobin 8.1 g/dL (14.0-18.0); Manual Diff?? YES; Mean Corpuscular Hemoglobin 29.9 pg (27.0-31.0); Mean Corpuscular Volume 87.8 fl (78.0-98.0); Mean Platelet Volume 10.8 fL (7.4-10.4); Platelet Count 123 10x3/uL (130-400); RBC Distribution Width 18.5 % (11.5-14.5); Red Blood Cell (RBC) Count 2.71 mill/uL (4.70-6.10); White Blood Cell (WBC) Count 12.5 10x3/uL (4.8-10.8)
[2023-06-28 04:44] LABS: ALT (SGPT) 19 U/L (8-55); AST (SGOT) 400 U/L (5-34); Albumin 3.7 g/dL (3.5-5.0); Alkaline Phosphatase 72 U/L (40-110); Anion Gap 22 mmol/L (10-20); BUN (Urea Nitrogen) 77 mg/dL (8.9-20.6); Bilirubin, Total 3.6 mg/dL (0.2-1.2); Calc. Creatinine Clearance 15 mL/min (70-130); Calcium 7.8 mg/dL (7.8-10.44); Carbon Dioxide 26 mmol/L (22-29); Chloride 100 mmol/L (98-107); Estimated GFR 9; Globulin 1.8 g/dL (2.4-3.5); Glucose 103 mg/dL (70-105); Potassium 4.7 mmol/L (3.5-5.1); Protein, Total 5.5 g/dL (6.0-8.3); Sodium 143 mmol/L (136-145)
[2023-06-28 05:01] LABS: Delete Auto Diff?? YES
[2023-06-28 05:04] LABS: CK (CPK) 13404 U/L (30-200)
[2023-06-28 06:23] LABS: Anisocytosis SLIGHT = 6-15 cells HPF (0-5); Band 28 % (5-11); CellaVision Operator ID LAB.JMM; Hypochromia SLIGHT = 6-15 cells HPF (0-5); Lymphocytes 3 % (21-51); Monocytes 7 % (0-10); Myelocyte 1 % (0-0); Neutrophil 60 % (42-75); Platelet Adequacy Comment Platelets Decreased; Polychromasia SLIGHT = 2-3 cells HPF (0-2); Smudge Cells 3.9 %; Total Cell Count 103
[2023-06-28] MEDS ORDERED: Midazolam HCl 2 mg/2 ml Vial ONE ×2 (07:46→10:19)
[2023-06-28] MEDS ORDERED: PROPOFOL 20 ML ONE (07:46)
[2023-06-28] MEDS ORDERED: Rocuronium Bromide 10 MG/ML (10ML VIAL) ONE ×2 (07:46→09:23)
[2023-06-28 07:50] LABS: Actual Bicarbonate (HCO3a) 24.3 mEq/L (22-28); Base Excess (BEa) 0.1 mEq/L (-2.0 to +3.0); CO2 Tension 37.6 mmHg (35.0-45.0); Calcium, Ionized (arterial) 0.88 mmol/L (1.12-1.30); Carboxyhemoglobin (COHb) 0.6 gm% (0.0-3.0); Hematocrit-ABG 24 % (42.0-52.0); Hemoglobin (Hb) 8.2 g/dL (14.0-18.0); O2 Tension (PaO2), arterial 96.6 mmHg (80.0-100.0); Potassium - ABG Lab 4.67 mmol/L (3.70-5.30); pH, Arterial 7.429 (7.35-7.45)
[2023-06-28 07:54] LABS: Puncture Site ALINE
[2023-06-28] MEDS ORDERED: PHENYLEPHRINE-NS 100 MCG/ML 10 ML SYRINGE ONE (08:22)
[2023-06-28] MEDS ORDERED: Piperacillin/Tazobactam 3.375 GM VIAL ONE (08:41)
[2023-06-28] MEDS: Amlodipine 10 MG TAB PO SCH (12:12)
[2023-06-28] MEDS: Bisacodyl 10 MG SUPP PR SCH (12:13)
[2023-06-28] MEDS: Albumin 25% 25 GM (100 mL) BOT IVPB SCH (17:03)
[2023-06-28] MEDS: Albumin 25% 200 ML ONE (17:59)
[2023-06-28] MEDS: Dextrose 50% Abboject 50 ML SYRINGE SLOW IVP PRN (23:14)
[2023-06-29] MEDS: Sodium Chloride 0.9% 500 ML IV SCH (01:43)
[2023-06-29 04:40] LABS: Hematocrit 19.1 % (42.0-52.0); Hemoglobin 6.4 g/dL (14.0-18.0); Manual Diff?? YES; Mean Corpuscular HGB CONC 33.5 g/dL (32.0-36.0); Mean Corpuscular Hemoglobin 29.9 pg (27.0-31.0); Mean Corpuscular Volume 89.3 fl (78.0-98.0); Mean Platelet Volume 11.4 fL (7.4-10.4); Platelet Count 114 10x3/uL (130-400); RBC Distribution Width 18.2 % (11.5-14.5); Red Blood Cell (RBC) Count 2.14 mill/uL (4.70-6.10); White Blood Cell (WBC) Count 11.3 10x3/uL (4.8-10.8)
[2023-06-29 04:54] LABS: Delete Auto Diff?? YES
[2023-06-29 04:57] LABS: ALT (SGPT) 14 U/L (8-55); AST (SGOT) 202 U/L (5-34); Albumin 3.4 g/dL (3.5-5.0); Alkaline Phosphatase 47 U/L (40-110); Anion Gap 16 mmol/L (10-20); BUN (Urea Nitrogen) 57 mg/dL (8.9-20.6); Bilirubin, Total 5.1 mg/dL (0.2-1.2); Calc. Creatinine Clearance 18 mL/min (70-130); Calcium 7.6 mg/dL (7.8-10.44); Carbon Dioxide 27 mmol/L (22-29); Chloride 102 mmol/L (98-107); Estimated GFR 11; Globulin 1.7 g/dL (2.4-3.5); Glucose 95 mg/dL (70-105); Potassium 4.4 mmol/L (3.5-5.1); Protein, Total 5.1 g/dL (6.0-8.3); Sodium 141 mmol/L (136-145)
[2023-06-29 05:10] LABS: CK (CPK) 7261 U/L (30-200)
[2023-06-29 05:29] LABS: Anisocytosis SLIGHT = 6-15 cells HPF (0-5); Band 27 % (5-11); CellaVision Operator ID lab.abc; Eosinophils 3 % (0-10); Lymphocytes 4 % (21-51); Metamyelocyte 1 % (0-0); Microcytosis SLIGHT = 6-15 cells HPF (0-5); Monocytes 5 % (0-10); Myelocyte 2 % (0-0); Neutrophil 57 % (42-75); Nucleated RBC (Manual Ct) 1 % (0); Platelet Adequacy Comment Platelets Decreased; Polychromasia SLIGHT = 2-3 cells HPF (0-2); Smudge Cells 13.9 %; Total Cell Count 101
[2023-06-29] MEDS: Albumin 25% 25 GM (100 mL) BOT IVPB SCH (08:24)
[2023-06-29] MEDS: Metoclopramide HCl 10 MG (2 mL) VIAL IVP PRN (12:53)
[2023-06-29] MEDS: Acetylcysteine 20% 200 MG/ML 30 ML VIAL INH SCH ×2 (13:44→20:00)
[2023-06-30 04:34] LABS: #Basophils 0.1 thou/uL (0.0-0.2); #Monocytes 0.6 thou/uL (0.11-0.59); #Neutrophils 6.7 thou/uL (1.40-6.50); %Basophils 0.6 % (0.0-1.0); %Eosinophils 0.2 % (0.0-10.0); %Lymphocytes 8.7 % (21.0-51.0); %Monocytes 7.1 % (0.0-10.0); %Neutrophils 82.1 % (42.0-75.0); Mean Corpuscular HGB CONC 33.7 g/dL (32.0-36.0); Mean Corpuscular Hemoglobin 29.6 pg (27.0-31.0); Mean Corpuscular Volume 87.9 fl (78.0-98.0); Mean Platelet Volume 10.9 fL (7.4-10.4); Platelet Count 313 10x3/uL (130-400); RBC Distribution Width 14.9 % (11.5-14.5); Red Blood Cell (RBC) Count 3.55 mill/uL (4.70-6.10); White Blood Cell (WBC) Count 8.2 10x3/uL (4.8-10.8)
[2023-06-30 04:59] LABS: Hematocrit 31.2 % (42.0-52.0); Hemoglobin 10.5 g/dL (14.0-18.0)
[2023-06-30 05:14] LABS: ALT (SGPT) 36 U/L (8-55); AST (SGOT) 60 U/L (5-34); Albumin 2.6 g/dL (3.5-5.0); Alkaline Phosphatase 77 U/L (40-110); Anion Gap 10 mmol/L (10-20); BUN (Urea Nitrogen) 18 mg/dL (8.9-20.6); Bilirubin, Total 1.4 mg/dL (0.2-1.2); CK (CPK) 45 U/L (30-200); Calc. Creatinine Clearance 109 mL/min (70-130); Calcium 8.1 mg/dL (7.8-10.44); Carbon Dioxide 24 mmol/L (22-29); Chloride 108 mmol/L (98-107); Estimated GFR 104; Globulin 2.9 g/dL (2.4-3.5); Glucose 179 mg/dL (70-105); Potassium 3.3 mmol/L (3.5-5.1); Protein, Total 5.5 g/dL (6.0-8.3); Sodium 139 mmol/L (136-145)
[2023-06-30 05:47] LABS: Hematocrit 26.7 % (42.0-52.0); Hemoglobin 9.1 g/dL (14.0-18.0); Manual Diff?? YES; Mean Corpuscular HGB CONC 34.1 g/dL (32.0-36.0); Mean Corpuscular Hemoglobin 29.4 pg (27.0-31.0); Mean Corpuscular Volume 86.1 fl (78.0-98.0); Mean Platelet Volume 11.5 fL (7.4-10.4); RBC Distribution Width 19.8 % (11.5-14.5); White Blood Cell (WBC) Count 16.5 10x3/uL (4.8-10.8)
[2023-06-30 05:56] LABS: Delete Auto Diff?? YES; Platelet Count 164 10x3/uL (130-400)
[2023-06-30 06:07] LABS: ALT (SGPT) 16 U/L (8-55); AST (SGOT) 159 U/L (5-34); Albumin 3.4 g/dL (3.5-5.0); Alkaline Phosphatase 59 U/L (40-110); Anion Gap 24 mmol/L (10-20); BUN (Urea Nitrogen) 91 mg/dL (8.9-20.6); Bilirubin, Total 7.6 mg/dL (0.2-1.2); CK (CPK) 3678 U/L (30-200); Calc. Creatinine Clearance 12 mL/min (70-130); Calcium 8.6 mg/dL (7.8-10.44); Carbon Dioxide 21 mmol/L (22-29); Chloride 99 mmol/L (98-107); Estimated GFR 7; Globulin 2.3 g/dL (2.4-3.5); Glucose 86 mg/dL (70-105); Potassium 4.9 mmol/L (3.5-5.1); Protein, Total 5.7 g/dL (6.0-8.3); Sodium 139 mmol/L (136-145)
[2023-06-30 06:41] LABS: Anisocytosis SLIGHT = 6-15 cells HPF (0-5); Band 23 % (5-11); Burr Cells SLIGHT = 2-5 cells HPF (0-1); CellaVision Operator ID LAB.JMM; Eosinophils 4 % (0-10); Howell Jolly Bodies SLIGHT = 1-2 cells HPF (None Seen); Lymphocytes 5 % (21-51); Metamyelocyte 2 % (0-0); Monocytes 9 % (0-10); Myelocyte 3 % (0-0); Neutrophil 54 % (42-75); Platelet Adequacy Comment Platelets Normal; Polychromasia MODERATE = 3-4 cells HPF (0-2); Smudge Cells 26.7 %; Tear Drops SLIGHT = 2-5 cells HPF (0-1); Total Cell Count 101; Toxic Granulation MODERATE
[2023-06-30] MEDS: Nicotine 21 MG PATCH TOP SCH (08:55)
[2023-06-30] MEDS: Albumin 25% 25 GM (100 mL) BOT IVPB SCH (09:07)
[2023-06-30] MEDS: Activase 2 MG VIAL CATH SCH (10:00)
[2023-06-30] MEDS: Sterile Water 10 ML VIAL IVP SCH (10:00)
[2023-06-30] MEDS ORDERED: Heparin 10,000 UNITS/ 10 ML VIAL ONE (11:03)
[2023-07-01 04:49] LABS: ALT (SGPT) 20 U/L (8-55); AST (SGOT) 151 U/L (5-34); Albumin 3.6 g/dL (3.5-5.0); Alkaline Phosphatase 85 U/L (40-110); Anion Gap 22 mmol/L (10-20); BUN (Urea Nitrogen) 62 mg/dL (8.9-20.6); Bilirubin, Total 8.8 mg/dL (0.2-1.2); CK (CPK) 2165 U/L (30-200); Calc. Creatinine Clearance 16 mL/min (70-130); Calcium 9.4 mg/dL (7.8-10.44); Carbon Dioxide 24 mmol/L (22-29); Chloride 101 mmol/L (98-107); Estimated GFR 10; Globulin 2.5 g/dL (2.4-3.5); Glucose 101 mg/dL (70-105); Iron 37 ug/dL (65-175); Iron Binding Capacity, Total 171 mcg/dL (261-462); Potassium 4.5 mmol/L (3.5-5.1); Protein, Total 6.1 g/dL (6.0-8.3); Sodium 142 mmol/L (136-145)
[2023-07-01 05:02] LABS: Delete Auto Diff?? YES; Hematocrit 27.2 % (42.0-52.0); Hemoglobin 9.4 g/dL (14.0-18.0); Manual Diff?? YES; Mean Corpuscular HGB CONC 34.6 g/dL (32.0-36.0); Mean Corpuscular Hemoglobin 29.6 pg (27.0-31.0); Mean Corpuscular Volume 85.5 fl (78.0-98.0); Mean Platelet Volume 10.7 fL (7.4-10.4); Platelet Count 212 10x3/uL (130-400); RBC Distribution Width 19.1 % (11.5-14.5); Red Blood Cell (RBC) Count 3.18 mill/uL (4.70-6.10); White Blood Cell (WBC) Count 22.8 10x3/uL (4.8-10.8)
[2023-07-01 05:44] LABS: Band 2 % (5-11); CellaVision Operator ID lab.abc; Eosinophils 3 % (0-10); Lymphocytes 4 % (21-51); Metamyelocyte 3 % (0-0); Monocytes 3 % (0-10); Myelocyte 5 % (0-0); Neutrophil 78 % (42-75); Plasma Cells 1 % (0-0); Platelet Adequacy Comment Platelets Normal; Polychromasia SLIGHT = 2-3 cells HPF (0-2); Reactive Lymphocytes 1 % (0-10); Smudge Cells 18.8 %; Total Cell Count 101
[2023-07-01] MEDS: Ferrous Sulfate 300 MG (5 mL) UDCUP PER TUBE SCH (11:58)
[2023-07-01] MEDS: EPOETIN ALFA-EPBX 10,000 UNITS/ML VIAL SC SCH (11:58)
[2023-07-01] MEDS ORDERED: Sterile Water 10 ML VIAL IVP SCH (13:30)
[2023-07-01] MEDS: Activase 2 MG VIAL CATH SCH (14:18)
[2023-07-01] MEDS ORDERED: PHENYLEPHRINE-NS 100 MCG/ML 10 ML SYRINGE ONE (15:56)
[2023-07-01] MEDS ORDERED: Rocuronium Bromide 10 MG/ML (10ML VIAL) ONE (15:56)
[2023-07-01] MEDS ORDERED: PROPOFOL 20 ML ONE (15:56)
[2023-07-01] MEDS ORDERED: Midazolam HCl 2 mg/2 ml Vial ONE (15:56)
[2023-07-01] MEDS ORDERED: fentaNYL PF 100 MCG/2 ML SYRINGE ONE ×2 (16:20→16:35)
[2023-07-01] MEDS ORDERED: Bupivacaine PF 0.5% 30 ML VIAL ONE (16:40)
[2023-07-02 04:22] LABS: Hematocrit 29.6 % (42.0-52.0); Manual Diff?? YES; Mean Corpuscular HGB CONC 33.8 g/dL (32.0-36.0); Mean Corpuscular Hemoglobin 29.1 pg (27.0-31.0); Mean Platelet Volume 10.7 fL (7.4-10.4); Platelet Count 283 10x3/uL (130-400); RBC Distribution Width 18.9 % (11.5-14.5); Red Blood Cell (RBC) Count 3.44 mill/uL (4.70-6.10)
[2023-07-02 04:39] LABS: Delete Auto Diff?? YES
[2023-07-02 04:59] LABS: ALT (SGPT) 28 U/L (8-55); AST (SGOT) 128 U/L (5-34); Albumin 3.4 g/dL (3.5-5.0); Alkaline Phosphatase 112 U/L (40-110); Anion Gap 21 mmol/L (10-20); BUN (Urea Nitrogen) 63 mg/dL (8.9-20.6); CK (CPK) 1655 U/L (30-200); Calc. Creatinine Clearance 17 mL/min (70-130); Calcium 8.5 mg/dL (7.8-10.44); Carbon Dioxide 25 mmol/L (22-29); Chloride 101 mmol/L (98-107); Estimated GFR 11; Globulin 2.7 g/dL (2.4-3.5); Glucose 112 mg/dL (70-105); Potassium 4.7 mmol/L (3.5-5.1); Protein, Total 6.1 g/dL (6.0-8.3); Sodium 142 mmol/L (136-145)
[2023-07-02 05:42] LABS: Band 5 % (5-11); CellaVision Operator ID LAB.GE; Eosinophils 2 % (0-10); Large Platelets 1.7 % (0-5); Lymphocytes 4 % (21-51); Metamyelocyte 3 % (0-0); Monocytes 3 % (0-10); Myelocyte 3 % (0-0); Neutrophil 80 % (42-75); Platelet Adequacy Comment Platelets Normal; Polychromasia MODERATE = 3-4 cells HPF (0-2); Promyelocytes 1 % (0-0); Reactive Lymphocytes 1 % (0-10); Total Cell Count 117
[2023-07-02] MEDS: Ferrous Sulfate 300 MG (5 mL) UDCUP PER TUBE SCH (08:42)
[2023-07-02] MEDS ORDERED: Heparin 10,000 UNITS/ 10 ML VIAL ONE (08:47)
[2023-07-02] MEDS: Meropenem 1 GM in Sodium Chloride 0.9% 100 ML IVPB SCH (10:17)
[2023-07-02] MEDS: METHadone HCl 10 MG TAB PER TUBE SCH ×2 (11:17→16:47)
[2023-07-02] MEDS: Nystatin 500,000 UNITS/5 ML UDCUP SSW SCH (16:47)
[2023-07-03] MEDS ORDERED: LORazepam 2 MG/ML SYR.(CARPUJECT) IVP PRN (04:09)
[2023-07-03 04:56] LABS: Hematocrit 24.9 % (42.0-52.0); Hemoglobin 8.5 g/dL (14.0-18.0); Manual Diff?? YES; Mean Corpuscular HGB CONC 34.1 g/dL (32.0-36.0); Mean Corpuscular Hemoglobin 29.5 pg (27.0-31.0); Mean Corpuscular Volume 86.5 fl (78.0-98.0); Platelet Count 312 10x3/uL (130-400); RBC Distribution Width 19.1 % (11.5-14.5); Red Blood Cell (RBC) Count 2.88 mill/uL (4.70-6.10); White Blood Cell (WBC) Count 26.4 10x3/uL (4.8-10.8)
[2023-07-03 05:22] LABS: ALT (SGPT) 33 U/L (8-55); AST (SGOT) 105 U/L (5-34); Albumin 3.2 g/dL (3.5-5.0); Alkaline Phosphatase 107 U/L (40-110); Anion Gap 26 mmol/L (10-20); Bilirubin, Total 8.9 mg/dL (0.2-1.2); CK (CPK) 1134 U/L (30-200); Calc. Creatinine Clearance 11 mL/min (70-130); Calcium 8.7 mg/dL (7.8-10.44); Carbon Dioxide 20 mmol/L (22-29); Chloride 100 mmol/L (98-107); Delete Auto Diff?? YES; Estimated GFR 7; Globulin 2.8 g/dL (2.4-3.5); Glucose 97 mg/dL (70-105); Potassium 5.3 mmol/L (3.5-5.1); Sodium 141 mmol/L (136-145)
[2023-07-03 05:33] LABS: BUN (Urea Nitrogen) 113 mg/dL (8.9-20.6)
[2023-07-03 05:59] LABS: Hematocrit 25.3 % (42.0-52.0); Hemoglobin 8.5 g/dL (14.0-18.0); Mean Corpuscular HGB CONC 33.6 g/dL (32.0-36.0); Mean Corpuscular Hemoglobin 28.9 pg (27.0-31.0); Mean Corpuscular Volume 86.1 fl (78.0-98.0); Mean Platelet Volume 10.7 fL (7.4-10.4); Platelet Count 303 10x3/uL (130-400); RBC Distribution Width 19.1 % (11.5-14.5); Red Blood Cell (RBC) Count 2.94 mill/uL (4.70-6.10); White Blood Cell (WBC) Count 26.5 10x3/uL (4.8-10.8)
[2023-07-03 06:26] LABS: ALT (SGPT) 34 U/L (8-55); AST (SGOT) 101 U/L (5-34); Albumin 3.2 g/dL (3.5-5.0); Alkaline Phosphatase 105 U/L (40-110); Anion Gap 25 mmol/L (10-20); Bilirubin, Total 8.7 mg/dL (0.2-1.2); Calc. Creatinine Clearance 10 mL/min (70-130); Calcium 8.6 mg/dL (7.8-10.44); Carbon Dioxide 21 mmol/L (22-29); Chloride 100 mmol/L (98-107); Estimated GFR 6; Globulin 2.8 g/dL (2.4-3.5); Glucose 97 mg/dL (70-105); Potassium 5.3 mmol/L (3.5-5.1); Sodium 141 mmol/L (136-145)
[2023-07-03 06:37] LABS: BUN (Urea Nitrogen) 116 mg/dL (8.9-20.6)
[2023-07-03 08:10] LABS: Eosinophils 2 % (0-10); Lymphocytes 6 % (21-51); Monocytes 7 % (0-10); Neutrophil 85 % (42-75); Target Cells SLIGHT = 2-5 cells (100X) (0-1/hpf)
[2023-07-03] MEDS ORDERED: Heparin 10,000 UNITS/ 10 ML VIAL ONE (09:02)
[2023-07-03] MEDS: Meropenem 500 MG in Sodium Chloride 0.9% 100 ML IVPB SCH (09:40)
[2023-07-03 11:58] LABS: Analyzer IN Cardio OR; Base Excess (BEa) -8.7 mEq/L (-2.0 to +3.0); Calcium, Ionized (arterial) 1.28 mmol/L (1.12-1.30); Carboxyhemoglobin (COHb) 0.2 gm% (0.0-3.0); Hematocrit-ABG 32 % (42.0-52.0); Hemoglobin (Hb) 10.8 g/dL (14.0-18.0); O2 Tension (PaO2), arterial 189.8 mmHg (80.0-100.0); Potassium - ABG Lab 5.05 mmol/L (3.70-5.30); pH, Arterial 7.293 (7.35-7.45)
[2023-07-03 11:58] LABS: Actual Bicarbonate (HCO3a) 16.1 mEq/L (22-28); Analyzer IN Cardio OR; Base Excess (BEa) -11.9 mEq/L (-2.0 to +3.0); CO2 Tension 44.7 mmHg (35.0-45.0); Calcium, Ionized (arterial) 0.91 mmol/L (1.12-1.30); Carboxyhemoglobin (COHb) 0.6 gm% (0.0-3.0); Hematocrit-ABG 35 % (42.0-52.0)
[2023-07-03 11:59] LABS: Actual Bicarbonate (HCO3a) 18.1 mEq/L (22-28); Analyzer IN Cardio OR; Base Excess (BEa) -6.7 mEq/L (-2.0 to +3.0); CO2 Tension 33.3 mmHg (35.0-45.0); Calcium, Ionized (arterial) 1.25 mmol/L (1.12-1.30); Carboxyhemoglobin (COHb) 0.3 gm% (0.0-3.0); Hematocrit-ABG 27 % (42.0-52.0); Hemoglobin (Hb) 9.2 g/dL (14.0-18.0); O2 Tension (PaO2), arterial 233.3 mmHg (80.0-100.0); Potassium - ABG Lab 4.58 mmol/L (3.70-5.30); pH, Arterial 7.352 (7.35-7.45)
[2023-07-03 11:59] LABS: Actual Bicarbonate (HCO3a) 17.9 mEq/L (22-28); Analyzer IN Cardio OR; Base Excess (BEa) -7.4 mEq/L (-2.0 to +3.0); CO2 Tension 35.2 mmHg (35.0-45.0); Carboxyhemoglobin (COHb) 0.1 gm% (0.0-3.0); Hematocrit-ABG 29 % (42.0-52.0); Hemoglobin (Hb) 9.7 g/dL (14.0-18.0); O2 Tension (PaO2), arterial 203.8 mmHg (80.0-100.0); Potassium - ABG Lab 4.53 mmol/L (3.70-5.30); pH, Arterial 7.323 (7.35-7.45)
[2023-07-03 12:00] LABS: pH, Arterial 7.175 (7.35-7.45)
[2023-07-03 12:01] LABS: Potassium - ABG Lab 6.91 mmol/L (3.70-5.30); Puncture Site Arterial Line
[2023-07-03 12:01] LABS: Puncture Site Arterial Line
[2023-07-03] MEDS: Gabapentin 300 MG CAP PER TUBE SCH (12:05)
[2023-07-03 12:08] LABS: Puncture Site Arterial Line
[2023-07-03 12:09] LABS: Puncture Site Arterial Line
[2023-07-03 12:12] LABS: Actual Bicarbonate (HCO3a) 24.7 mEq/L (22-28); Base Excess (BEa) 1.3 mEq/L (-2.0 to +3.0); CO2 Tension 33.6 mmHg (35.0-45.0); Hematocrit-ABG 22 % (42.0-52.0); O2 Tension (PaO2), arterial 129.6 mmHg (80.0-100.0); pH, Arterial 7.484 (7.35-7.45)
[2023-07-03 12:13] LABS: Analyzer IN Cardio OR; Carboxyhemoglobin (COHb) 0.5 gm% (0.0-3.0); Hemoglobin (Hb) 7.6 g/dL (14.0-18.0); Potassium - ABG Lab 4.35 mmol/L (3.70-5.30); Puncture Site ALINE
[2023-07-03] MEDS: METHadone HCl 10 MG TAB PER TUBE SCH (15:30)
[2023-07-03] MEDS: Acetaminophen 650 MG/20.3 ML UDCUP PO PRN (19:26)
[2023-07-03] MEDS: Heparin 5,000 UNITS/ML VIAL SC SCH (20:24)
[2023-07-04 04:57] LABS: Hematocrit 24.9 % (42.0-52.0); Hemoglobin 8.5 g/dL (14.0-18.0); Manual Diff?? YES; Mean Corpuscular HGB CONC 34.1 g/dL (32.0-36.0); Mean Corpuscular Hemoglobin 29.2 pg (27.0-31.0); Mean Corpuscular Volume 85.6 fl (78.0-98.0); Mean Platelet Volume 11.1 fL (7.4-10.4); Platelet Count 388 10x3/uL (130-400); RBC Distribution Width 19.4 % (11.5-14.5); Red Blood Cell (RBC) Count 2.91 mill/uL (4.70-6.10); White Blood Cell (WBC) Count 24.6 10x3/uL (4.8-10.8)
[2023-07-04 05:08] LABS: Delete Auto Diff?? YES
[2023-07-04 05:32] LABS: ALT (SGPT) 43 U/L (8-55); AST (SGOT) 98 U/L (5-34); Albumin 3.3 g/dL (3.5-5.0); Alkaline Phosphatase 144 U/L (40-110); Anion Gap 24 mmol/L (10-20); BUN (Urea Nitrogen) 85 mg/dL (8.9-20.6); Bilirubin, Total 8.3 mg/dL (0.2-1.2); CK (CPK) 742 U/L (30-200); Calc. Creatinine Clearance 14 mL/min (70-130); Calcium 8.8 mg/dL (7.8-10.44); Carbon Dioxide 22 mmol/L (22-29); Chloride 98 mmol/L (98-107); Estimated GFR 10; Globulin 3.2 g/dL (2.4-3.5); Glucose 111 mg/dL (70-105); Potassium 4.9 mmol/L (3.5-5.1); Protein, Total 6.5 g/dL (6.0-8.3); Sodium 139 mmol/L (136-145)
[2023-07-04 05:36] LABS: Anisocytosis MODERATE=16-30 cells HPF (0-5); Band 3 % (5-11); CellaVision Operator ID lab.dlt; Eosinophils 5 % (0-10); Hypochromia SLIGHT = 6-15 cells HPF (0-5); Lymphocytes 4 % (21-51); Macrocytosis SLIGHT = 6-15 cells HPF (0-5); Metamyelocyte 1 % (0-0); Monocytes 6 % (0-10); Neutrophil 81 % (42-75); Platelet Adequacy Comment Platelets Normal; Poikilocytosis SLIGHT = 6-15 cells HPF (0-5); Polychromasia SLIGHT = 2-3 cells HPF (0-2); Smudge Cells 28.7 %; Tear Drops SLIGHT = 2-5 cells HPF (0-1); Total Cell Count 101
[2023-07-04] MEDS ORDERED: Metoclopramide HCl 10 MG (2 mL) VIAL IVP PRN (06:51)
[2023-07-04] MEDS: Gabapentin 300 MG CAP PER TUBE SCH (08:01)
[2023-07-04] MEDS ORDERED: Dexmedetomidine In 0.9 % NaCl 100 ML IVPB SCH (10:15)
[2023-07-04] MEDS ORDERED: fentaNYL 50 mcg/hour Patch TD SCH (10:30)
[2023-07-04] MEDS ORDERED: Naloxone HCl 0.4 mg/ml Vial IV PRN (10:30)
[2023-07-04] MEDS: fentaNYL 75 mcg/hour Patch TD SCH ×2 (10:37→11:12)
[2023-07-04] MEDS: fentaNYL 50 mcg/mL 1 mL Vial SLOW IVP PRN ×2 (11:06→13:55)
[2023-07-04] MEDS ORDERED: Heparin 10,000 UNITS/ 10 ML VIAL ONE (13:00)
[2023-07-04] MEDS ORDERED: Vancomycin Diaylsis Sliding Scale (Wt 71-99) FS SCH (14:30)
[2023-07-04] MEDS: Meropenem 500 MG in Sodium Chloride 0.9% 100 ML IVPB SCH (19:39)
[2023-07-04] MEDS ORDERED: Vancomycin 1 GM in Premix 1 BAG IVPB SCH (21:00)
[2023-07-04] MEDS: Vancomycin 1 GM in Premix 1 BAG IVPB SCH (23:27)
[2023-07-05] MEDS: QUEtiapine 25 MG TAB PO SCH ×3 (01:43→20:33)
[2023-07-05 05:28] LABS: Hematocrit 24.1 % (42.0-52.0); Hemoglobin 8.1 g/dL (14.0-18.0); Manual Diff?? YES; Mean Corpuscular HGB CONC 33.6 g/dL (32.0-36.0); Mean Corpuscular Hemoglobin 29.2 pg (27.0-31.0); Platelet Count 483 10x3/uL (130-400); RBC Distribution Width 18.8 % (11.5-14.5); Red Blood Cell (RBC) Count 2.77 mill/uL (4.70-6.10); White Blood Cell (WBC) Count 27.8 10x3/uL (4.8-10.8)
[2023-07-05 05:30] LABS: Delete Auto Diff?? YES
[2023-07-05 05:53] LABS: ALT (SGPT) 48 U/L (8-55); AST (SGOT) 93 U/L (5-34); Albumin 3.2 g/dL (3.5-5.0); Alkaline Phosphatase 142 U/L (40-110); Anion Gap 20 mmol/L (10-20); BUN (Urea Nitrogen) 69 mg/dL (8.9-20.6); Calc. Creatinine Clearance 16 mL/min (70-130); Calcium 8.6 mg/dL (7.8-10.44); Carbon Dioxide 25 mmol/L (22-29); Chloride 95 mmol/L (98-107); Estimated GFR 12; Globulin 3.3 g/dL (2.4-3.5); Glucose 94 mg/dL (70-105); Potassium 4.5 mmol/L (3.5-5.1); Protein, Total 6.5 g/dL (6.0-8.3); Sodium 135 mmol/L (136-145)
[2023-07-05 05:59] LABS: Band 6 % (5-11); CellaVision Operator ID LAB.CLH1; Hypochromia SLIGHT = 6-15 cells HPF (0-5); Large Platelets 2.9 % (0-5); Lymphocytes 12 % (21-51); Metamyelocyte 2 % (0-0); Monocytes 3 % (0-10); Neutrophil 77 % (42-75); Platelet Adequacy Comment Platelets Increased; Polychromasia MODERATE = 3-4 cells HPF (0-2); Target Cells SLIGHT = 2-5 cells HPF (0-1); Total Cell Count 102
[2023-07-05] MEDS ORDERED: Heparin 10,000 UNITS/ 10 ML VIAL ONE (12:55)
[2023-07-05] MEDS: Pregabalin 75 MG CAP PO SCH (17:34)
[2023-07-05 19:13] LABS: Vancomycin, Random 11.9 ug/mL (See Comment)
[2023-07-05] MEDS: Vancomycin HCl 750 MG in Sodium Chloride 0.9% 250 ML 250 ML IVPB SCH (21:19)
[2023-07-06 05:07] LABS: Hematocrit 23.6 % (42.0-52.0); Hemoglobin 7.7 g/dL (14.0-18.0); Manual Diff?? YES; Mean Corpuscular HGB CONC 32.6 g/dL (32.0-36.0); Mean Corpuscular Hemoglobin 28.9 pg (27.0-31.0); Mean Corpuscular Volume 88.7 fl (78.0-98.0); Mean Platelet Volume 10.9 fL (7.4-10.4); Platelet Count 505 10x3/uL (130-400); RBC Distribution Width 19.1 % (11.5-14.5); Red Blood Cell (RBC) Count 2.66 mill/uL (4.70-6.10); White Blood Cell (WBC) Count 23.7 10x3/uL (4.8-10.8)
[2023-07-06 05:13] LABS: Delete Auto Diff?? YES
[2023-07-06 05:31] LABS: Phosphorus 7.6 mg/dL (2.3-4.7)
[2023-07-06 05:33] LABS: ALT (SGPT) 54 U/L (8-55); AST (SGOT) 86 U/L (5-34); Albumin 3.2 g/dL (3.5-5.0); Alkaline Phosphatase 157 U/L (40-110); Anion Gap 22 mmol/L (10-20); BUN (Urea Nitrogen) 82 mg/dL (8.9-20.6); Bilirubin, Total 6.1 mg/dL (0.2-1.2); CK (CPK) 534 U/L (30-200); Calc. Creatinine Clearance 15 mL/min (70-130); Calcium 8.7 mg/dL (7.8-10.44); Carbon Dioxide 23 mmol/L (22-29); Chloride 100 mmol/L (98-107); Estimated GFR 11; Globulin 3.3 g/dL (2.4-3.5); Glucose 111 mg/dL (70-105); Potassium 4.6 mmol/L (3.5-5.1); Protein, Total 6.5 g/dL (6.0-8.3); Sodium 140 mmol/L (136-145)
[2023-07-06 06:17] LABS: Anisocytosis SLIGHT = 6-15 cells HPF (0-5); Band 3 % (5-11); CellaVision Operator ID lab.sh2; Eosinophils 3 % (0-10); Hypochromia SLIGHT = 6-15 cells HPF (0-5); Lymphocytes 8 % (21-51); Macrocytosis SLIGHT = 6-15 cells HPF (0-5); Monocytes 2 % (0-10); Neutrophil 84 % (42-75); Platelet Adequacy Comment Platelets Increased; Polychromasia MODERATE = 3-4 cells HPF (0-2); Stomatocytes MODERATE= 6-15 cells HPF (0-1); Total Cell Count 100
[2023-07-06] MEDS ORDERED: Activase 2 MG VIAL CATH SCH (11:30)
[2023-07-06] MEDS ORDERED: Lactulose 20 GM (30 mL) UDCUP PO PRN (11:41)
[2023-07-06] MEDS ORDERED: Polyethylene Glycol 3350 17 GM Packet PO PRN (11:41)
[2023-07-06] MEDS ORDERED: Senokot S 8.6-50 MG TAB PO PRN (11:41)
[2023-07-06] MEDS: Activase 2 MG VIAL CATH SCH (17:13)
[2023-07-06] MEDS: Ipratropium/Albuterol 3 ML NEB NEB SCH (18:53)
[2023-07-07 04:33] LABS: Hematocrit 22.1 % (42.0-52.0); Hemoglobin 7.2 g/dL (14.0-18.0); Manual Diff?? YES; Mean Corpuscular HGB CONC 32.6 g/dL (32.0-36.0); Mean Corpuscular Hemoglobin 28.6 pg (27.0-31.0); Mean Corpuscular Volume 87.7 fl (78.0-98.0); Mean Platelet Volume 10.9 fL (7.4-10.4); Platelet Count 562 10x3/uL (130-400); RBC Distribution Width 18.6 % (11.5-14.5); Red Blood Cell (RBC) Count 2.52 mill/uL (4.70-6.10); White Blood Cell (WBC) Count 26.7 10x3/uL (4.8-10.8)
[2023-07-07 04:41] LABS: Delete Auto Diff?? YES
[2023-07-07 04:56] LABS: ALT (SGPT) 54 U/L (8-55); AST (SGOT) 76 U/L (5-34); Albumin 3.1 g/dL (3.5-5.0); Alkaline Phosphatase 155 U/L (40-110); Anion Gap 29 mmol/L (10-20); Bilirubin, Total 5.5 mg/dL (0.2-1.2); Calc. Creatinine Clearance 10 mL/min (70-130); Carbon Dioxide 16 mmol/L (22-29); Chloride 93 mmol/L (98-107); Estimated GFR 8; Globulin 3.3 g/dL (2.4-3.5); Glucose 85 mg/dL (70-105); Protein, Total 6.4 g/dL (6.0-8.3); Sodium 132 mmol/L (136-145)
[2023-07-07 05:07] LABS: BUN (Urea Nitrogen) 119 mg/dL (8.9-20.6); Potassium 6.1 mmol/L (3.5-5.1)
[2023-07-07 05:09] LABS: Anisocytosis SLIGHT = 6-15 cells HPF (0-5); Band 16 % (5-11); CellaVision Operator ID LAB.CLH1; Eosinophils 4 % (0-10); Hypochromia SLIGHT = 6-15 cells HPF (0-5); Lymphocytes 2 % (21-51); Macrocytosis SLIGHT = 6-15 cells HPF (0-5); Monocytes 4 % (0-10); Neutrophil 74 % (42-75); Platelet Adequacy Comment Platelets Increased; Polychromasia MODERATE = 3-4 cells HPF (0-2); Total Cell Count 101
[2023-07-07 06:07] LABS: Anion Gap 29 mmol/L (10-20); Calc. Creatinine Clearance 10 mL/min (70-130); Carbon Dioxide 16 mmol/L (22-29); Chloride 92 mmol/L (98-107); Estimated GFR 7; Glucose 89 mg/dL (70-105); Magnesium 2.3 mg/dL (1.6-2.6); Sodium 131 mmol/L (136-145)
[2023-07-07 06:16] LABS: Potassium 6.1 mmol/L (3.5-5.1)
[2023-07-07 06:22] LABS: BUN (Urea Nitrogen) 131 mg/dL (8.9-20.6)
[2023-07-07] MEDS: Dextrose 50% Abboject 50 ML SYRINGE SLOW IVP PRN (06:28)
[2023-07-07] MEDS: Sodium Bicarb 50 mEq/50 ML VIAL IVP SCH (06:28)
[2023-07-07] MEDS: Insulin Regular 300 UNITS/3 ML VIAL IVP SCH (06:28)
[2023-07-07 08:24] LABS: Vancomycin, Random 19.3 ug/mL (See Comment)
[2023-07-07 09:13] LABS: Anion Gap 28 mmol/L (10-20); Calc. Creatinine Clearance 10 mL/min (70-130); Carbon Dioxide 20 mmol/L (22-29); Chloride 92 mmol/L (98-107); Estimated GFR 7; Glucose 66 mg/dL (70-105); Potassium 5.9 mmol/L (3.5-5.1); Sodium 134 mmol/L (136-145)
[2023-07-07] MEDS ORDERED: Vancomycin Hemodialysis Sliding Scale FS SCH (09:15)
[2023-07-07 09:24] LABS: BUN (Urea Nitrogen) 132 mg/dL (8.9-20.6)
[2023-07-07] MEDS: Haloperidol Lactate 5 MG/ML VIAL SLOW IVP PRN (10:40)
[2023-07-07] MEDS: fentaNYL 50 mcg/hour Patch TD SCH (12:45)
[2023-07-07 13:17] LABS: Hematocrit 22.8 % (42.0-52.0); Hemoglobin 7.5 g/dL (14.0-18.0); Platelet Count 514 10x3/uL (130-400)
[2023-07-07 13:42] LABS: Anion Gap 17 mmol/L (10-20); BUN (Urea Nitrogen) 67 mg/dL (8.9-20.6); Calc. Creatinine Clearance 19 mL/min (70-130); Carbon Dioxide 27 mmol/L (22-29); Chloride 98 mmol/L (98-107); Estimated GFR 15; Glucose 84 mg/dL (70-105); Sodium 138 mmol/L (136-145)
[2023-07-07] MEDS ORDERED: EPINEPHrine 1 MG/ML VIAL ONE (13:46)
[2023-07-07] MEDS ORDERED: Bupivacaine 0.25% HCL 30 ML VIAL ONE (13:46)
[2023-07-07] MEDS ORDERED: Heparin 10,000 UNITS/ 10 ML VIAL ONE (13:52)
[2023-07-07] MEDS ORDERED: MINERAL OIL/WHITE PETROLATUM 3.5 GM TUBE ONE (14:29)
[2023-07-07] MEDS ORDERED: Rocuronium Bromide 10 MG/ML (10ML VIAL) ONE (14:29)
[2023-07-07] MEDS ORDERED: Chlorhexidine Gluconate 15 ML UDCUP SSP ONE (14:39)
[2023-07-07] MEDS: Vancomycin HCl 500 MG in Sodium Chloride 0.9% 100 ML IVPB SCH (16:45)
[2023-07-08 05:36] LABS: #Basophils 0.1 thou/uL (0.0-0.2); #Eosinphils 0.3 thou/uL (0.0-0.7); #Monocytes 1.6 thou/uL (0.11-0.59); #Neutrophils 16.8 thou/uL (1.40-6.50); %Basophils 0.4 % (0.0-1.0); %Eosinophils 1.3 % (0.0-10.0); %Lymphocytes 7.9 % (21.0-51.0); %Monocytes 7.7 % (0.0-10.0); %Neutrophils 80.3 % (42.0-75.0); Hematocrit 20.2 % (42.0-52.0); Hemoglobin 6.5 g/dL (14.0-18.0); Mean Corpuscular HGB CONC 32.2 g/dL (32.0-36.0); Mean Corpuscular Hemoglobin 28.9 pg (27.0-31.0); Mean Corpuscular Volume 89.8 fl (78.0-98.0); Platelet Count 520 10x3/uL (130-400); RBC Distribution Width 18.5 % (11.5-14.5); Red Blood Cell (RBC) Count 2.25 mill/uL (4.70-6.10); White Blood Cell (WBC) Count 20.9 10x3/uL (4.8-10.8)
[2023-07-08 05:57] LABS: ALT (SGPT) 59 U/L (8-55); AST (SGOT) 88 U/L (5-34); Albumin 2.9 g/dL (3.5-5.0); Alkaline Phosphatase 127 U/L (40-110); Anion Gap 19 mmol/L (10-20); BUN (Urea Nitrogen) 105 mg/dL (8.9-20.6); Bilirubin, Total 4.2 mg/dL (0.2-1.2); Calc. Creatinine Clearance 13 mL/min (70-130); Calcium 8.3 mg/dL (7.8-10.44); Carbon Dioxide 24 mmol/L (22-29); Chloride 97 mmol/L (98-107); Estimated GFR 9; Globulin 3.2 g/dL (2.4-3.5); Glucose 90 mg/dL (70-105); Potassium 5.4 mmol/L (3.5-5.1); Protein, Total 6.1 g/dL (6.0-8.3); Sodium 135 mmol/L (136-145)
[2023-07-08 07:31] LABS: Vancomycin, Random 21.6 ug/mL (See Comment)
[2023-07-08] MEDS ORDERED: Heparin 10,000 UNITS/ 10 ML VIAL ONE (09:09)
[2023-07-08 14:00] LABS: Hemoglobin 7.9 g/dL (14.0-18.0); Platelet Count 463 10x3/uL (130-400)
[2023-07-08] MEDS: Vancomycin HCl 250 MG in Sodium Chloride 0.9% 100 ML IVPB SCH (15:25)
[2023-07-08] MEDS: ALPRAZolam 0.25 MG TAB PO PRN (23:09)
[2023-07-09 07:09] LABS: #Basophils 0.1 thou/uL (0.0-0.2); #Eosinphils 0.3 thou/uL (0.0-0.7); #Monocytes 1.7 thou/uL (0.11-0.59); #Neutrophils 14.6 thou/uL (1.40-6.50); %Basophils 0.6 % (0.0-1.0); %Eosinophils 1.5 % (0.0-10.0); %Lymphocytes 6.5 % (21.0-51.0); %Monocytes 9.3 % (0.0-10.0); %Neutrophils 80.5 % (42.0-75.0); Hematocrit 22.2 % (42.0-52.0); Hemoglobin 7.3 g/dL (14.0-18.0); Mean Corpuscular HGB CONC 32.9 g/dL (32.0-36.0); Mean Corpuscular Hemoglobin 29.1 pg (27.0-31.0); Mean Corpuscular Volume 88.4 fl (78.0-98.0); Mean Platelet Volume 10.9 fL (7.4-10.4); Platelet Count 374 10x3/uL (130-400); RBC Distribution Width 17.4 % (11.5-14.5); Red Blood Cell (RBC) Count 2.51 mill/uL (4.70-6.10); White Blood Cell (WBC) Count 18.2 10x3/uL (4.8-10.8)
[2023-07-09 07:36] LABS: ALT (SGPT) 71 U/L (8-55); AST (SGOT) 119 U/L (5-34); Albumin 2.8 g/dL (3.5-5.0); Alkaline Phosphatase 132 U/L (40-110); Anion Gap 16 mmol/L (10-20); BUN (Urea Nitrogen) 74 mg/dL (8.9-20.6); Bilirubin, Total 3.7 mg/dL (0.2-1.2); Calc. Creatinine Clearance 18 mL/min (70-130); Calcium 8.1 mg/dL (7.8-10.44); Carbon Dioxide 25 mmol/L (22-29); Chloride 95 mmol/L (98-107); Estimated GFR 13; Globulin 3.2 g/dL (2.4-3.5); Glucose 102 mg/dL (70-105); Sodium 131 mmol/L (136-145)
[2023-07-09] MEDS ORDERED: PROPOFOL 20 ML ONE (10:52)
[2023-07-09] MEDS ORDERED: fentaNYL PF 100 MCG/2 ML SYRINGE ONE (10:52)
[2023-07-09] MEDS: fentaNYL 25 mcg Patch TD SCH (12:30)
[2023-07-09] MEDS: Nicotine 14 MG PATCH TD SCH (12:35)
[2023-07-10] MEDS: DULoxetine 30 MG CAP PO SCH (07:58)
[2023-07-10] MEDS: Nicotine 14 MG PATCH TD SCH (07:59)
[2023-07-10 08:03] LABS: #Basophils 0.1 thou/uL (0.0-0.2); #Eosinphils 0.4 thou/uL (0.0-0.7); #Monocytes 1.5 thou/uL (0.11-0.59); #Neutrophils 10.1 thou/uL (1.40-6.50); %Basophils 0.7 % (0.0-1.0); %Eosinophils 2.8 % (0.0-10.0); %Lymphocytes 9.7 % (21.0-51.0); %Monocytes 11.2 % (0.0-10.0); Hemoglobin 6.9 g/dL (14.0-18.0); Mean Corpuscular HGB CONC 32.9 g/dL (32.0-36.0); Mean Corpuscular Hemoglobin 29.2 pg (27.0-31.0); Mean Platelet Volume 11.4 fL (7.4-10.4); Platelet Count 176 10x3/uL (130-400); RBC Distribution Width 16.8 % (11.5-14.5); Red Blood Cell (RBC) Count 2.36 mill/uL (4.70-6.10); White Blood Cell (WBC) Count 13.6 10x3/uL (4.8-10.8)
[2023-07-10 08:26] LABS: Vancomycin, Random 15.3 ug/mL (See Comment)
[2023-07-10 08:55] LABS: ALT (SGPT) 111 U/L (8-55); AST (SGOT) 186 U/L (5-34); Albumin 2.8 g/dL (3.5-5.0); Alkaline Phosphatase 124 U/L (40-110); Anion Gap 23 mmol/L (10-20); BUN (Urea Nitrogen) 125 mg/dL (8.9-20.6); Bilirubin, Total 3.4 mg/dL (0.2-1.2); Calc. Creatinine Clearance 11 mL/min (70-130); Calcium 7.9 mg/dL (7.8-10.44); Carbon Dioxide 20 mmol/L (22-29); Chloride 93 mmol/L (98-107); Estimated GFR 8; Globulin 2.8 g/dL (2.4-3.5); Glucose 94 mg/dL (70-105); Potassium 5.9 mmol/L (3.5-5.1); Protein, Total 5.6 g/dL (6.0-8.3); Sodium 130 mmol/L (136-145)
[2023-07-10] MEDS ORDERED: Heparin 10,000 UNITS/ 10 ML VIAL ONE (10:50)
[2023-07-10] MEDS: Albumin 25% 25 GM (100 mL) BOT IVPB SCH (13:06)
[2023-07-10] MEDS: Vancomycin HCl 500 MG in Sodium Chloride 0.9% 100 ML IVPB SCH (16:54)
[2023-07-11 07:00] LABS: ALT (SGPT) 88 U/L (8-55); AST (SGOT) 125 U/L (5-34); Alkaline Phosphatase 113 U/L (40-110); Anion Gap 19 mmol/L (10-20); BUN (Urea Nitrogen) 67 mg/dL (8.9-20.6); Bilirubin, Total 3.8 mg/dL (0.2-1.2); CK (CPK) 209 U/L (30-200); Calc. Creatinine Clearance 18 mL/min (70-130); Calcium 8.3 mg/dL (7.8-10.44); Carbon Dioxide 23 mmol/L (22-29); Chloride 97 mmol/L (98-107); Estimated GFR 14; Globulin 3.1 g/dL (2.4-3.5); Glucose 95 mg/dL (70-105); Potassium 5.1 mmol/L (3.5-5.1); Protein, Total 6.1 g/dL (6.0-8.3); Sodium 134 mmol/L (136-145)
[2023-07-11 08:06] LABS: Phosphorus 7.2 mg/dL (2.3-4.7)
[2023-07-11 08:18] LABS: #Basophils 0.1 thou/uL (0.0-0.2); #Eosinphils 0.3 thou/uL (0.0-0.7); #Monocytes 1.1 thou/uL (0.11-0.59); #Neutrophils 9.2 thou/uL (1.40-6.50); %Basophils 0.8 % (0.0-1.0); %Eosinophils 2.4 % (0.0-10.0); %Lymphocytes 8.7 % (21.0-51.0); %Monocytes 9.6 % (0.0-10.0); %Neutrophils 77.1 % (42.0-75.0); Hematocrit 26.2 % (42.0-52.0); Hemoglobin 8.6 g/dL (14.0-18.0); Mean Corpuscular HGB CONC 32.8 g/dL (32.0-36.0); Mean Corpuscular Hemoglobin 29.8 pg (27.0-31.0); Mean Corpuscular Volume 90.7 fl (78.0-98.0); RBC Distribution Width 16.2 % (11.5-14.5); Red Blood Cell (RBC) Count 2.89 mill/uL (4.70-6.10); White Blood Cell (WBC) Count 11.9 10x3/uL (4.8-10.8)
[2023-07-11 08:26] LABS: Platelet Count 31 10x3/uL (130-400)
[2023-07-11 08:52] LABS: Anisocytosis MARKED = >30 cells HPF (0-5); CellaVision Operator ID LAB.KW3; Hypochromia SLIGHT = 6-15 cells HPF (0-5); Platelet Adequacy Comment Significant decrease; Poikilocytosis MODERATE=16-30 cells HPF (0-5); Polychromasia MARKED = >4 cells HPF (0-2)
[2023-07-11 09:52] LABS: Platelet Count 30 10x3/uL (130-400)
[2023-07-11 17:51] LABS: #Basophils 0.1 thou/uL (0.0-0.2); #Eosinphils 0.3 thou/uL (0.0-0.7); #Neutrophils 6.5 thou/uL (1.40-6.50); %Basophils 0.7 % (0.0-1.0); %Eosinophils 3.6 % (0.0-10.0); %Lymphocytes 13.8 % (21.0-51.0); %Monocytes 10.6 % (0.0-10.0); %Neutrophils 70.1 % (42.0-75.0); Hematocrit 21.6 % (42.0-52.0); Hemoglobin 7.1 g/dL (14.0-18.0); Mean Corpuscular HGB CONC 32.9 g/dL (32.0-36.0); Mean Corpuscular Hemoglobin 29.7 pg (27.0-31.0); Mean Corpuscular Volume 90.4 fl (78.0-98.0); RBC Distribution Width 16.5 % (11.5-14.5); Red Blood Cell (RBC) Count 2.39 mill/uL (4.70-6.10); White Blood Cell (WBC) Count 9.2 10x3/uL (4.8-10.8)
[2023-07-11 18:01] LABS: Platelet Count 10 10x3/uL (130-400)
[2023-07-12 03:57] LABS: #Basophils 0.1 thou/uL (0.0-0.2); #Eosinphils 0.4 thou/uL (0.0-0.7); #Monocytes 1.1 thou/uL (0.11-0.59); #Neutrophils 7.9 thou/uL (1.40-6.50); %Basophils 0.7 % (0.0-1.0); %Eosinophils 3.7 % (0.0-10.0); %Lymphocytes 9.4 % (21.0-51.0); %Monocytes 10.1 % (0.0-10.0); Hematocrit 25.2 % (42.0-52.0); Hemoglobin 8.4 g/dL (14.0-18.0); Mean Corpuscular HGB CONC 33.3 g/dL (32.0-36.0); Mean Corpuscular Hemoglobin 29.4 pg (27.0-31.0); Mean Corpuscular Volume 88.1 fl (78.0-98.0); RBC Distribution Width 16.1 % (11.5-14.5); Red Blood Cell (RBC) Count 2.86 mill/uL (4.70-6.10); White Blood Cell (WBC) Count 10.6 10x3/uL (4.8-10.8)
[2023-07-12 04:03] LABS: Platelet Count 32 10x3/uL (130-400)
[2023-07-12 04:07] LABS: ALT (SGPT) 64 U/L (8-55); AST (SGOT) 78 U/L (5-34); Albumin 2.9 g/dL (3.5-5.0); Alkaline Phosphatase 106 U/L (40-110); Anion Gap 21 mmol/L (10-20); BUN (Urea Nitrogen) 106 mg/dL (8.9-20.6); Calc. Creatinine Clearance 13 mL/min (70-130); Carbon Dioxide 22 mmol/L (22-29); Chloride 97 mmol/L (98-107); Estimated GFR 10; Globulin 2.8 g/dL (2.4-3.5); Glucose 98 mg/dL (70-105); Protein, Total 5.7 g/dL (6.0-8.3); Sodium 134 mmol/L (136-145)
[2023-07-12 04:13] LABS: Potassium 6.3 mmol/L (3.5-5.1)
[2023-07-12] MEDS ORDERED: Dextrose 50% Abboject 50 ML SYRINGE SLOW IVP PRN (04:16)
[2023-07-12 04:19] LABS: INR-International Normal Ratio 1.3; PTT 33.2 sec (22.9-36.1); Prothrombin Time 16.2 sec (12.0-14.7)
[2023-07-12] MEDS: Insulin Regular 300 UNITS/3 ML VIAL IVP SCH (05:28)
[2023-07-12] MEDS ORDERED: Polyethylene Glycol 3350 17 GM Packet PO PRN (06:20)
[2023-07-12] MEDS: fentaNYL 25 mcg Patch TD SCH (10:14)
[2023-07-12] MEDS: Senokot S 8.6-50 MG TAB PO SCH (10:19)
[2023-07-13 07:38] LABS: #Basophils 0.1 thou/uL (0.0-0.2); #Eosinphils 0.5 thou/uL (0.0-0.7); #Monocytes 0.7 thou/uL (0.11-0.59); #Neutrophils 7.4 thou/uL (1.40-6.50); %Eosinophils 4.8 % (0.0-10.0); %Lymphocytes 13.5 % (21.0-51.0); %Neutrophils 71.6 % (42.0-75.0); Hematocrit 28.2 % (42.0-52.0); Hemoglobin 9.2 g/dL (14.0-18.0); Mean Corpuscular HGB CONC 32.6 g/dL (32.0-36.0); Mean Corpuscular Volume 91.9 fl (78.0-98.0); Red Blood Cell (RBC) Count 3.07 mill/uL (4.70-6.10); White Blood Cell (WBC) Count 10.3 10x3/uL (4.8-10.8)
[2023-07-13 07:40] LABS: ALT (SGPT) 61 U/L (8-55); AST (SGOT) 79 U/L (5-34); Albumin 3.2 g/dL (3.5-5.0); Alkaline Phosphatase 119 U/L (40-110); Anion Gap 20 mmol/L (10-20); BUN (Urea Nitrogen) 62 mg/dL (8.9-20.6); Bilirubin, Total 3.4 mg/dL (0.2-1.2); Calc. Creatinine Clearance 19 mL/min (70-130); Calcium 8.9 mg/dL (7.8-10.44); Carbon Dioxide 22 mmol/L (22-29); Chloride 98 mmol/L (98-107); Estimated GFR 15; Globulin 3.5 g/dL (2.4-3.5); Glucose 108 mg/dL (70-105); Potassium 5.2 mmol/L (3.5-5.1); Protein, Total 6.7 g/dL (6.0-8.3); Sodium 135 mmol/L (136-145)
[2023-07-13 08:29] LABS: Platelet Count 5 10x3/uL (130-400)
[2023-07-13 08:32] LABS: Critical Call w/ Read Back NUR.MAT@0832
[2023-07-13] MEDS: fentaNYL 50 mcg/hour Patch TD SCH (11:24)
[2023-07-13 11:40] LABS: Platelet Count 54 10x3/uL (130-400)
[2023-07-13] MEDS: LevoFLOXacin 750 mg/D5W 750 MG in Premix 1 BAG IVPB SCH (15:37)
[2023-07-14 05:12] LABS: #Basophils 0.1 thou/uL (0.0-0.2); #Eosinphils 0.6 thou/uL (0.0-0.7); #Monocytes 0.9 thou/uL (0.11-0.59); #Neutrophils 7.5 thou/uL (1.40-6.50); %Basophils 0.8 % (0.0-1.0); %Eosinophils 5.5 % (0.0-10.0); %Lymphocytes 14.1 % (21.0-51.0); %Monocytes 8.1 % (0.0-10.0); %Neutrophils 69.6 % (42.0-75.0); Hematocrit 24.7 % (42.0-52.0); Hemoglobin 8.2 g/dL (14.0-18.0); Mean Corpuscular HGB CONC 33.2 g/dL (32.0-36.0); Mean Corpuscular Hemoglobin 30.5 pg (27.0-31.0); Mean Corpuscular Volume 91.8 fl (78.0-98.0); RBC Distribution Width 16.7 % (11.5-14.5); Red Blood Cell (RBC) Count 2.69 mill/uL (4.70-6.10); White Blood Cell (WBC) Count 10.8 10x3/uL (4.8-10.8)
[2023-07-14 05:16] LABS: Platelet Count 10 10x3/uL (130-400)
[2023-07-14 05:34] LABS: ALT (SGPT) 48 U/L (8-55); AST (SGOT) 55 U/L (5-34); Albumin 2.9 g/dL (3.5-5.0); Alkaline Phosphatase 98 U/L (40-110); Anion Gap 20 mmol/L (10-20); BUN (Urea Nitrogen) 92 mg/dL (8.9-20.6); Bilirubin, Total 2.5 mg/dL (0.2-1.2); Calc. Creatinine Clearance 15 mL/min (70-130); Calcium 8.7 mg/dL (7.8-10.44); Carbon Dioxide 24 mmol/L (22-29); Chloride 95 mmol/L (98-107); Estimated GFR 11; Globulin 3.1 g/dL (2.4-3.5); Glucose 85 mg/dL (70-105); Potassium 5.9 mmol/L (3.5-5.1); Sodium 133 mmol/L (136-145)
[2023-07-15 05:27] LABS: #Basophils 0.1 thou/uL (0.0-0.2); #Eosinphils 0.6 thou/uL (0.0-0.7); #Monocytes 0.9 thou/uL (0.11-0.59); #Neutrophils 7.3 thou/uL (1.40-6.50); %Basophils 0.9 % (0.0-1.0); %Eosinophils 5.3 % (0.0-10.0); %Lymphocytes 13.1 % (21.0-51.0); %Monocytes 8.6 % (0.0-10.0); %Neutrophils 69.8 % (42.0-75.0); Hematocrit 20.1 % (42.0-52.0); Hemoglobin 6.7 g/dL (14.0-18.0); Mean Corpuscular HGB CONC 33.3 g/dL (32.0-36.0); Mean Corpuscular Hemoglobin 31.3 pg (27.0-31.0); Mean Corpuscular Volume 93.9 fl (78.0-98.0); RBC Distribution Width 16.7 % (11.5-14.5); Red Blood Cell (RBC) Count 2.14 mill/uL (4.70-6.10); White Blood Cell (WBC) Count 10.4 10x3/uL (4.8-10.8)
[2023-07-15 05:56] LABS: ALT (SGPT) 43 U/L (8-55); AST (SGOT) 61 U/L (5-34); Albumin 3.1 g/dL (3.5-5.0); Alkaline Phosphatase 97 U/L (40-110); Anion Gap 15 mmol/L (10-20); BUN (Urea Nitrogen) 49 mg/dL (8.9-20.6); Bilirubin, Total 2.9 mg/dL (0.2-1.2); Calc. Creatinine Clearance 24 mL/min (70-130); Calcium 8.8 mg/dL (7.8-10.44); Carbon Dioxide 26 mmol/L (22-29); Chloride 101 mmol/L (98-107); Estimated GFR 19; Glucose 85 mg/dL (70-105); Potassium 4.6 mmol/L (3.5-5.1); Protein, Total 6.1 g/dL (6.0-8.3); Sodium 137 mmol/L (136-145)
[2023-07-15 06:07] LABS: Platelet Count 15 10x3/uL (130-400)
[2023-07-15] MEDS: Buprenorphine HCl 2 MG SL TAB SL SCH (14:27)
[2023-07-15] MEDS: LevoFLOXacin 500 mg/D5W 500 MG in Premix 1 BAG IVPB SCH (14:32)
[2023-07-15 16:40] LABS: #Basophils 0.2 thou/uL (0.0-0.2); #Eosinphils 0.6 thou/uL (0.0-0.7); #Monocytes 0.8 thou/uL (0.11-0.59); #Neutrophils 9.1 thou/uL (1.40-6.50); %Basophils 1.2 % (0.0-1.0); %Lymphocytes 10.5 % (21.0-51.0); %Monocytes 6.5 % (0.0-10.0); %Neutrophils 75.2 % (42.0-75.0); Hematocrit 21.5 % (42.0-52.0); Hemoglobin 6.9 g/dL (14.0-18.0); Mean Corpuscular HGB CONC 32.1 g/dL (32.0-36.0); Mean Corpuscular Hemoglobin 30.3 pg (27.0-31.0); Mean Corpuscular Volume 94.3 fl (78.0-98.0); RBC Distribution Width 16.4 % (11.5-14.5); Red Blood Cell (RBC) Count 2.28 mill/uL (4.70-6.10); White Blood Cell (WBC) Count 12.2 10x3/uL (4.8-10.8)
[2023-07-15 16:41] LABS: Platelet Count 32 10x3/uL (130-400)
[2023-07-15] MEDS: Ferrous Sulfate 325 MG TAB PO SCH (18:34)
[2023-07-15] MEDS: Ascorbic Acid 500 mg Chewable Tablet PO SCH (21:10)
[2023-07-16 06:31] LABS: #Basophils 0.1 thou/uL (0.0-0.2); #Eosinphils 0.3 thou/uL (0.0-0.7); #Monocytes 0.9 thou/uL (0.11-0.59); #Neutrophils 9.8 thou/uL (1.40-6.50); %Basophils 0.8 % (0.0-1.0); %Eosinophils 2.2 % (0.0-10.0); %Lymphocytes 11.8 % (21.0-51.0); %Monocytes 6.9 % (0.0-10.0); %Neutrophils 76.3 % (42.0-75.0); Hematocrit 27.1 % (42.0-52.0); Hemoglobin 8.9 g/dL (14.0-18.0); Mean Corpuscular HGB CONC 32.8 g/dL (32.0-36.0); RBC Distribution Width 15.7 % (11.5-14.5); Red Blood Cell (RBC) Count 2.97 mill/uL (4.70-6.10); White Blood Cell (WBC) Count 12.9 10x3/uL (4.8-10.8)
[2023-07-16 06:39] LABS: Mean Corpuscular Volume 91.2 fl (78.0-98.0); Platelet Count 44 10x3/uL (130-400)
[2023-07-16 06:51] LABS: ALT (SGPT) 50 U/L (8-55); AST (SGOT) 66 U/L (5-34); Albumin 3.4 g/dL (3.5-5.0); Alkaline Phosphatase 109 U/L (40-110); Anion Gap 16 mmol/L (10-20); BUN (Urea Nitrogen) 46 mg/dL (8.9-20.6); Bilirubin, Total 3.8 mg/dL (0.2-1.2); Calc. Creatinine Clearance 31 mL/min (70-130); Calcium 9.1 mg/dL (7.8-10.44); Carbon Dioxide 26 mmol/L (22-29); Chloride 98 mmol/L (98-107); Estimated GFR 26; Globulin 3.4 g/dL (2.4-3.5); Glucose 101 mg/dL (70-105); Potassium 4.2 mmol/L (3.5-5.1); Protein, Total 6.8 g/dL (6.0-8.3); Sodium 136 mmol/L (136-145)
[2023-07-16] MEDS ORDERED: [UNRECOGNIZED DRUG - REMARK] PO PRN (10:47)
[2023-07-16] MEDS: Buprenorphine HCl 2 MG SL TAB SL SCH ×3 (11:49→12:59)
[2023-07-16 16:15] LABS: Heparin-Induced Ab (HITA) 0.608 OD (0.000-0.400)
[2023-07-16] MEDS: METHadone HCl 10 MG TAB PER TUBE SCH (21:30)
[2023-07-17] MEDS: fentaNYL 50 mcg/mL 1 mL Vial SLOW IVP SCH (05:13)
[2023-07-17 06:54] LABS: #Basophils 0.1 thou/uL (0.0-0.2); #Eosinphils 0.4 thou/uL (0.0-0.7); #Monocytes 0.7 thou/uL (0.11-0.59); #Neutrophils 8.8 thou/uL (1.40-6.50); %Basophils 0.8 % (0.0-1.0); %Eosinophils 3.3 % (0.0-10.0); %Lymphocytes 13.9 % (21.0-51.0); %Monocytes 5.7 % (0.0-10.0); %Neutrophils 74.5 % (42.0-75.0); Hematocrit 25.4 % (42.0-52.0); Hemoglobin 8.8 g/dL (14.0-18.0); Mean Corpuscular HGB CONC 34.6 g/dL (32.0-36.0); Mean Corpuscular Hemoglobin 30.2 pg (27.0-31.0); Mean Corpuscular Volume 87.3 fl (78.0-98.0); Mean Platelet Volume 12.8 fL (7.4-10.4); RBC Distribution Width 15.6 % (11.5-14.5); Red Blood Cell (RBC) Count 2.91 mill/uL (4.70-6.10); White Blood Cell (WBC) Count 11.9 10x3/uL (4.8-10.8)
[2023-07-17 07:05] LABS: Platelet Count 81 10x3/uL (130-400)
[2023-07-17 07:09] LABS: CK (CPK) 192 U/L (30-200); Phosphorus 6.4 mg/dL (2.3-4.7)
[2023-07-17 07:34] LABS: ALT (SGPT) 48 U/L (8-55); AST (SGOT) 51 U/L (5-34); Albumin 3.5 g/dL (3.5-5.0); Alkaline Phosphatase 112 U/L (40-110); Anion Gap 19 mmol/L (10-20); BUN (Urea Nitrogen) 79 mg/dL (8.9-20.6); Bilirubin, Total 2.9 mg/dL (0.2-1.2); Calc. Creatinine Clearance 20 mL/min (70-130); Calcium 8.9 mg/dL (7.8-10.44); Carbon Dioxide 22 mmol/L (22-29); Chloride 98 mmol/L (98-107); Estimated GFR 16; Globulin 3.3 g/dL (2.4-3.5); Glucose 103 mg/dL (70-105); Potassium 3.9 mmol/L (3.5-5.1); Protein, Total 6.8 g/dL (6.0-8.3); Sodium 135 mmol/L (136-145)
[2023-07-17] MEDS ORDERED: Buprenorphine HCl 2 MG SL TAB SL SCH (09:00)
[2023-07-17] MEDS: Buprenorphine HCl 2 MG SL TAB SL SCH (09:24)
[2023-07-17 12:25] VITALS: BMI 44.4
[2023-07-17] MEDS: METHadone HCl 10 MG TAB PER TUBE SCH (14:29)
[2023-07-17] MEDS: LevoFLOXacin 500 MG TAB PO SCH (14:30)
[2023-07-18 08:46] VITALS: TEMP 98.8
[2023-07-18] MEDS: Buprenorphine HCl 2 MG SL TAB SL SCH (09:20)
[2023-07-18 10:03] LABS: #Basophils 0.1 thou/uL (0.0-0.2); #Eosinphils 0.6 thou/uL (0.0-0.7); #Monocytes 1.1 thou/uL (0.11-0.59); %Basophils 1.1 % (0.0-1.0); %Eosinophils 4.5 % (0.0-10.0); %Lymphocytes 15.7 % (21.0-51.0); %Monocytes 8.6 % (0.0-10.0); %Neutrophils 68.4 % (42.0-75.0); Hematocrit 24.2 % (42.0-52.0); Mean Corpuscular HGB CONC 33.1 g/dL (32.0-36.0); Mean Corpuscular Hemoglobin 30.7 pg (27.0-31.0); Mean Corpuscular Volume 92.7 fl (78.0-98.0); Mean Platelet Volume 12.6 fL (7.4-10.4); Platelet Count 140 10x3/uL (130-400); RBC Distribution Width 15.9 % (11.5-14.5); Red Blood Cell (RBC) Count 2.61 mill/uL (4.70-6.10); White Blood Cell (WBC) Count 13.1 10x3/uL (4.8-10.8)
[2023-07-18 10:56] LABS: Albumin 3.3 g/dL (3.5-5.0); Anion Gap 14 mmol/L (10-20); BUN (Urea Nitrogen) 48 mg/dL (8.9-20.6); BUN/Creatinine Ratio 15.58; Calc. Creatinine Clearance 29 mL/min (70-130); Calcium 8.9 mg/dL (7.8-10.44); Carbon Dioxide 25 mmol/L (22-29); Chloride 101 mmol/L (98-107); Estimated GFR 25; Glucose 90 mg/dL (70-105); Phosphorus 4.4 mg/dL (2.3-4.7); Potassium 3.6 mmol/L (3.5-5.1); Sodium 136 mmol/L (136-145)
[2023-07-18 16:18] VITALS: BP 151/96
[2023-07-19] MEDS ORDERED: Buprenorphine 8mg/Naloxone 2mg per 1 FILM SL SCH (09:00)
[2023-07-19] MEDS ORDERED: METHadone HCl 10 MG TAB PER TUBE SCH (09:00)
[2023-07-20] MEDS ORDERED: Buprenorphine 8mg/Naloxone 2mg per 1 FILM SL SCH (09:00)
[2023-07-21] MEDS ORDERED: METHadone HCl 10 MG TAB PER TUBE SCH (09:00)
[2023-07-22 13:24] LABS: Actual Bicarbonate (HCO3a) 24.7 mEq/L (22-28); Analyzer IN Cardio OR; Base Excess (BEa) 1.3 mEq/L (-2.0 to +3.0); CO2 Tension 33.6 mmHg (35.0-45.0); Carboxyhemoglobin (COHb) 0.5 gm% (0.0-3.0); Hematocrit-ABG 22 % (42.0-52.0); Hemoglobin (Hb) 7.6 g/dL (14.0-18.0); O2 Tension (PaO2), arterial 129.6 mmHg (80.0-100.0); Potassium - ABG Lab 4.35 mmol/L (3.70-5.30); pH, Arterial 7.484 (7.35-7.45)
[2023-07-22 13:25] LABS: Puncture Site Arterial Line
== END 2023-07-18 16:40 | DRG 956 ==
LOC: ERS 13:50 → SDC 15:03 → CCU 17:44 → UNDOADMIN 17:44 → IMCU/EMU 07-10 17:53
PROVIDERS: ADMIT Student in an Organized Health Care Education/Training Program; ATTEND Student in an Organized Health Care Education/Training Program
PROC: 0Y6C0Z3 Detachment at Right Upper Leg, Low, Open Approach (ICD-10-PCS; 2023-06-23)
PROC: 0Y6D0Z3 Detachment at Left Upper Leg, Low, Open Approach (ICD-10-PCS; 2023-06-23)
PROC: 06HY33Z Insertion of Infusion Device into Lower Vein, Percutaneous Approach (ICD-10-PCS; 2023-06-23)
PROC: 30233N1 Transfusion of Nonautologous Red Blood Cells into Peripheral Vein, Percutaneous Approach (ICD-10-PCS; 2023-06-23)
PROC: 30233K1 Transfusion of Nonautologous Frozen Plasma into Peripheral Vein, Percutaneous Approach (ICD-10-PCS; 2023-06-23)
PROC: 6A551Z2 Pheresis of Platelets, Multiple (ICD-10-PCS; 2023-06-23)
PROC: 30243J1 Transfusion of Nonautologous Serum Albumin into Central Vein, Percutaneous Approach (ICD-10-PCS; 2023-06-23)
PROC: 3E043XZ Introduction of Vasopressor into Central Vein, Percutaneous Approach (ICD-10-PCS; 2023-06-23)
PROC: 5A1955Z Respiratory Ventilation, Greater than 96 Consecutive Hours (ICD-10-PCS; 2023-06-23)
PROC: 03HY32Z Insertion of Monitoring Device into Upper Artery, Percutaneous Approach (ICD-10-PCS; principal; 2023-06-24)
PROC: 4A133B1 Monitoring of Arterial Pressure, Peripheral, Percutaneous Approach (ICD-10-PCS; 2023-06-24)
PROC: 4A133J1 Monitoring of Arterial Pulse, Peripheral, Percutaneous Approach (ICD-10-PCS; 2023-06-24)
PROC: 06H033Z Insertion of Infusion Device into Inferior Vena Cava, Percutaneous Approach (ICD-10-PCS; 2023-06-25)
PROC: 4A133R1 Monitoring of Arterial Saturation, Peripheral, Percutaneous Approach (ICD-10-PCS; 2023-06-25)
PROC: 0KBQ0ZZ Excision of Right Upper Leg Muscle, Open Approach (ICD-10-PCS; 2023-06-26)
PROC: 02HV33Z Insertion of Infusion Device into Superior Vena Cava, Percutaneous Approach (ICD-10-PCS; 2023-06-26)
PROC: 0QS936Z Reposition Left Femoral Shaft with Intramedullary Internal Fixation Device, Percutaneous Approach (ICD-10-PCS; 2023-06-28)
PROC: 0JH63XZ Insertion of Tunneled Vascular Access Device into Chest Subcutaneous Tissue and Fascia, Percutaneous Approach (ICD-10-PCS; 2023-07-07)
PROC: 05HM33Z Insertion of Infusion Device into Right Internal Jugular Vein, Percutaneous Approach (ICD-10-PCS; 2023-07-07)
PROC: 0Y990ZZ Drainage of Right Lower Extremity, Open Approach (ICD-10-PCS; 2023-07-09)
DX: S88.112A Complete traumatic amputation at level between knee and ankle, left lower leg, initial encounter (principal); S06.2XAA Diffuse traumatic brain injury with loss of consciousness status unknown, initial encounter; S72.352A Displaced comminuted fracture of shaft of left femur, initial encounter for closed fracture; J96.01 Acute respiratory failure with hypoxia; N17.0 Acute kidney failure with tubular necrosis; S27.321A Contusion of lung, unilateral, initial encounter; S02.40DA Maxillary fracture, left side, initial encounter for closed fracture; S02.40CA Maxillary fracture, right side, initial encounter for closed fracture; S88.111A Complete traumatic amputation at level between knee and ankle, right lower leg, initial encounter; D62 Acute posthemorrhagic anemia; E87.20 Acidosis, unspecified; S85.901A Unspecified injury of unspecified blood vessel at lower leg level, right leg, initial encounter; S27.0XXA Traumatic pneumothorax, initial encounter; D69.3 Immune thrombocytopenic purpura; T87.43 Infection of amputation stump, right lower extremity; T79.6XXA Traumatic ischemia of muscle, initial encounter; S70.212A Abrasion, left hip, initial encounter; E87.5 Hyperkalemia; S02.2XXA Fracture of nasal bones, initial encounter for closed fracture; Z79.4 Long term (current) use of insulin; Z79.899 Other long term (current) drug therapy; I10 Essential (primary) hypertension; D64.9 Anemia, unspecified
CPT/HCPCS: 31500; 36415; 36416; 36430; 36600; 70450; 70486; 71045; 71260; 72125; 72170; 74177; 75635; 76705; 80053; 80069; 80202; 80306; 80307; 81001; 82140; 82274; 82550; 82570; 82728; 82805; 82947; 83540; 83550; 83605; 83735; 84100; 84145; 84300; 85025; 85049; 85300; 85362; 85379; 85384; 85610; 85730; 86704; 86850; 86860; 86870; 86880; 86900; 86901; 86904; 86905; 86922; 86972; 87040; 87070; 87077; 87186; 87205; 87324; 87449; 88300; 90471; 90686; 90715; 90935; 93970; 94002; 94003; 94640; 96374; 96375; 97139; C1713; C1752; C9113; G0008; G0257; G0390; J0132; J0171; J0571; J0612; J0665; J0690; J1630; J1642; J1644; J1815; J1940; J1956; J2001; J2060; J2185; J2250; J2270; J2272; J2543; J2704; J2720; J2765; J2997; J3010; J3370; J3370-JW; J3490; J7030; J7050; J7070; J7120; J7620; J7999; P9012; P9016; P9035; P9045; P9047; P9048; P9059; Q5106; Q9967; S0028

== ENCOUNTER 2023-08-22 11:54 | Emergency (ER) | payer BC ==
[2023-08-22 15:15] LABS: #Basophils 0.05 10x3/uL (0.0-0.2); %Basophils 0.8 % (0.0-1.0); %Eosinophils 4.8 % (0.0-10.0); %Lymphocytes 19.5 % (21.0-51.0); %Monocytes 11.7 % (0.0-10.0); %Neutrophils 62.7 % (42.0-75.0); Hematocrit 38.6 % (42.0-52.0); Hemoglobin 12.8 g/dL (14.0-18.0); Mean Corpuscular HGB CONC 33.2 g/dL (32.0-36.0); Mean Corpuscular Hemoglobin 30.1 pg (27.0-31.0); Mean Corpuscular Volume 90.8 fl (78.0-98.0); Platelet Count 326 10x3/uL (130-400); RBC Distribution Width 14.1 % (11.5-14.5); Red Blood Cell (RBC) Count 4.25 mill/uL (4.70-6.10)
[2023-08-22] MEDS ORDERED: Sodium Bicarbonate 2.5 MEQ/5 ML SDV ONE (15:34)
[2023-08-22 15:35] LABS: ALT (SGPT) 89 U/L (8-55); AST (SGOT) 41 U/L (5-34); Albumin 4.5 g/dL (3.5-5.0); Alkaline Phosphatase 102 U/L (40-110); Anion Gap 15 mmol/L (10-20); BUN (Urea Nitrogen) 10 mg/dL (8.9-20.6); Bilirubin, Total 0.7 mg/dL (0.2-1.2); Calc. Creatinine Clearance 0 mL/min (70-130); Calcium 10.2 mg/dL (7.8-10.44); Carbon Dioxide 25 mmol/L (22-29); Chloride 102 mmol/L (98-107); Estimated GFR 119; Globulin 3.3 g/dL (2.4-3.5); Glucose 81 mg/dL (70-105); Potassium 4.5 mmol/L (3.5-5.1); Protein, Total 7.8 g/dL (6.0-8.3); Sodium 137 mmol/L (136-145)
[2023-08-22] MEDS ORDERED: Lidocaine 1% PF 5 ML VIAL ONE (15:35)
== END 2023-08-22 18:04 | disposition home or self-care (01) ==
LOC: ERS 11:54
DX: Z95.9 Presence of cardiac and vascular implant and graft, unspecified (principal)
CPT/HCPCS: 36416; 36584; 77001; 80053; 83605; 85025; 86140; 87040; 99283

== ENCOUNTER 2024-06-28 15:51 | Outpatient (CLI) | payer BC | END 2024-06-28 15:52 | disposition home or self-care (01) | LOC: RAD 15:51 | PROVIDERS: ATTEND Family Medicine | DX: Z01.818 Encounter for other preprocedural examination (principal) | CPT/HCPCS: 71046 ==

== ENCOUNTER 2025-04-13 15:46 | Outpatient (CLI) | payer BC | END 2025-04-13 15:47 | disposition home or self-care (01) | LOC: BICRAD 15:46 | PROVIDERS: ATTEND Family Medicine | DX: Z01.818 Encounter for other preprocedural examination (principal) | CPT/HCPCS: 71046 ==